=== PATIENT | male | born 1955 | race Caucasian/White ===

== ENCOUNTER 2017-02-16 16:41 | Emergency (ER) | payer MEDICARE, MEDICAID ==
--- NOTE | 2017-02-16 17:43 | EDM.PDOC ---
ED HPI GENERAL MEDICAL PROBLEM - General Chief Complaint: Genitourinary Problem Stated Complaint: REQUESTING A UA, [phone] Time Seen by Provider: 02/16/17 17:37 Source of Information: Reports: Patient History Limitations: Reports: No Limitations - History of Present Illness INITIAL COMMENTS - FREE TEXT/NARRATIVE: Pt states that he came here to get a urine drug screen. States that he was at a pain clinic in [facility] today and tested positive per the site for cocaine. States that he has never used cocaine before in his life and wanted to get a second opinion. No other complaints. Onset: Today Associated Symptoms: Reports: No Other Symptoms Generalized Pain Score (Numeric/FACES): 8 - Related Data Allergies Allergy/AdvReac Type Severity Reaction Status Date / Time aspirin Allergy Stomach Verified 03/16/15 16:21 Upset codeine Allergy Itching Verified 03/16/15 16:21 pregabalin [From Lyrica] Allergy Anaphylactic Verified 03/16/15 16:21 Shock Home Meds: Home Meds oxyCODONE [oxyCODONE] 40 mg PO BID 04/11/14 [History] Acetaminophen [Tylenol] 650 mg PO Q4H PRN 03/16/15 [History] Past Medical History Other HEENT History: Head injury that knocked out teeth Other Gastrointestinal History: lymph nodes on Pancreas. Patient is having scans every few months to watch for growth of lymph nodes Other Psychiatric History: decreased memory since head injury years ago - Past Surgical History Male Surgical History: Reports: Prostatectomy Other Musculoskeletal Surgeries/Procedures:: head and neck trauma Social & Family History - Family History Family Medical History: Noncontributory - Tobacco Use Smoking Status *Q: Current Every Day Smoker Years of Tobacco use: 40 Packs/Tins Daily: 0.5 Used Tobacco, but Quit: No Second Hand Smoke Exposure: No - Caffeine Use Caffeine Use: Reports: Coffee, Energy Drinks, Soda, Tea - Alcohol Use Days Per Week of Alcohol Use: 0 - Recreational Drug Use Recreational Drug Use: No - Living Situation & Occupation Living situation: Reports: with Family Occupation: Disabled ED ROS GENERAL - Review of Systems Review Of Systems: ROS reveals no pertinent complaints other than HPI. ED EXAM, GENERAL - Physical Exam Exam: See Below Exam Limited By: No Limitations General Appearance: Alert, WD/WN, No Apparent Distress Respiratory/Chest: No Respiratory Distress, Lungs Clear, Normal Breath Sounds, No Accessory Muscle Use, Chest Non-Tender Cardiovascular: Normal Peripheral Pulses, Regular Rate, Rhythm, No Edema, No Gallop, No JVD, No Murmur, No Rub Course - Orders/Labs/Meds Labs: Laboratory Tests 02/16/17 02/16/17 Range/Units 17:14 17:14 Urine Color Yellow (YELLOW) Urine Appearance Clear (CLEAR) Urine pH 7.0 (5.0-9.0) Ur Specific [place] 1.015 (1.005-1.030) Urine Protein Negative (NEGATIVE) Urine Glucose (UA) Negative (NEGATIVE) Urine Ketones Negative (NEGATIVE) Urine Occult Blood Trace-intact H (NEGATIVE) Urine Nitrite Negative (NEGATIVE) Urine Bilirubin Negative (NEGATIVE) Urine Urobilinogen 0.2 (0.2-1.0) mg/dL Ur Leukocyte Esterase Negative (NEGATIVE) Urine RBC 10-20 H /HPF Urine WBC 0-5 (0-5/HPF) /HPF Ur Epithelial Cells Not seen /HPF Urine Bacteria Rare (0-FEW/HPF) /HPF Urine Mucus Few H /LPF Urine Opiates Screen Positive H (NEGATIVE) Ur Oxycodone Screen Negative (NEGATIVE) Urine Methadone Screen Negative (NEGATIVE) Ur Barbiturates Screen Negative (NEGATIVE) U Tricyclic Antidepress Negative (NEGATIVE) Ur Phencyclidine Scrn Negative (NEGATIVE) Ur Amphetamine Screen Negative (NEGATIVE) U Methamphetamines Scrn Negative (NEGATIVE) Urine MDMA Screen Negative (NEGATIVE) U Benzodiazepines Scrn Negative (NEGATIVE) Urine Cocaine Screen Negative (NEGATIVE) U Marijuana (THC) Screen Negative (NEGATIVE) - Re-Assessments/Exams Free Text/Narrative Re-Assessment/Exam: 02/16/17 17:43 UDS did not reveal cocaine. Departure - Departure Time of Disposition: 17:44 Disposition: Home, Self-Care 01 Condition: Good Clinical Impression: Drug screening, pre-employment - Discharge Information Forms: ED Department Discharge Additional Instructions: There was no evidence of cocaine on your drug test today. Call medical records to obtain your official lab test.
== END 2017-02-16 17:50 | disposition home or self-care (01) ==
LOC: DL.ED 16:41
DX: Z02.1 Encounter for pre-employment examination (principal); Z13.89 Encounter for screening for other disorder; F17.210 Nicotine dependence, cigarettes, uncomplicated; Z88.8 Allergy status to other drugs, medicaments and biological substances; Z88.5 Allergy status to narcotic agent; Z88.6 Allergy status to analgesic agent; Z79.899 Other long term (current) drug therapy
CPT/HCPCS: 80305; 81001; 99281; 99282

== ENCOUNTER 2017-03-01 12:22 | Emergency (ER) | payer OTHER, MEDICARE, MEDICAID ==
[2017-03-01 12:27] VITALS: BP 116/91
--- NOTE | 2017-03-01 12:37 | EDM.PDOC ---
ED HPI GENERAL MEDICAL PROBLEM - General Chief Complaint: Neck Problem Stated Complaint: SHOULDER/NECK PAIN [phone] Time Seen by Provider: 03/01/17 12:35 Source of Information: Reports: Patient, Old Records, RN, RN Notes Reviewed History Limitations: Reports: No Limitations - History of Present Illness INITIAL COMMENTS - FREE TEXT/NARRATIVE: C/O chronic neck and shoulder pain for 7 years resulting from a beam falling onto his head. Pt went to his doctor for pain management 2 weeks ago and was told that his urine drug screen was positive for cocaine, and she will no longer prescribe oxycodone for him. Pt states when he was told of the positive drug screen he drove straight to the ER and had another drug screen which was negative for cocaine. Pt states that he has never used cocaine in his life. Now he has been out of pain medication for the past 4 days. He reports having withdrawal symptoms on the 2nd and 3rd days that he was out of the oxycodone, but that seems to be improving. He has an appointment to see a neurosurgeon in 2 weeks. He is currently looking for a new PCP doctor. He is at the ER today hoping to have his oxycodone refilled. 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 Patient is having scans every few months to watch for growth of lymph nodes Genitourinary History: Reports: BPH, Prostate Disorder Musculoskeletal History: Reports: Back Pain, Chronic, Neck Pain, Chronic, Osteoarthritis, Other (See Below) (DDD) Other Psychiatric History: decreased memory since head injury years ago Oncologic (Cancer) History: Reports: Prostate - Past Surgical History Male Surgical History: Reports: Prostatectomy Other Musculoskeletal Surgeries/Procedures:: head and neck trauma Social & Family History - Family History Family Medical History: Noncontributory - Tobacco Use Smoking Status *Q: Current Every Day Smoker Years of Tobacco use: 40 Packs/Tins Daily: 0.5 Used Tobacco, but Quit: No Second Hand Smoke Exposure: No - Caffeine Use Caffeine Use: Reports: Coffee, Energy Drinks, Soda, Tea - Alcohol Use Days Per Week of Alcohol Use: 0 - Recreational Drug Use Recreational Drug Use: No - Living Situation & Occupation Living situation: Reports: with Family Occupation: Disabled ED ROS GENERAL - Review of Systems Review Of Systems: ROS reveals no pertinent complaints other than HPI. ED EXAM, UPPER BACK/NECK PAIN - Physical Exam Exam: See Below Exam Limited By: No Limitations General Appearance: Alert, No Apparent Distress, Thin Ears Exam: Hearing Grossly Normal Nose Exam: Normal Inspection Throat/Mouth Exam: Normal Inspection Head Exam: Atraumatic, Normocephalic Neck Exam: Limited Range of Motion, Muscle Spasm, Paraspinous Muscle Tender. No : Spinous Processes Tender, Tender Midline Back Exam: Decreased Range of Motion, Muscle Spasm (upper thoracic and trapezius regions). 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 nml As Tested, No Motor/Sensory Deficits, Alert, Normal Mood/Affect, Oriented x 3 Psychiatric: Normal Affect, Normal Mood Skin Exam: Normal Color, Warm/Dry Course - Vital Signs Last Recorded V/S: Last Vital Signs Temp 36.6 C 03/01/17 12:26 Pulse 95 03/01/17 12:26 Resp 16 03/01/17 12:26 BP 116/91 H 03/01/17 12:26 Pulse Ox 99 03/01/17 12:26 - Orders/Labs/Meds Meds: Medications Discontinued Medications Generic Name Dose Route Start Last Admin Trade Name Freq PRN Reason Stop Dose Admin Oxycodone/Acetaminophen 2 tab 03/01/17 12:48 Percocet 325-5 Mg PO 03/01/17 12:49 ONETIME ONE - Re-Assessments/Exams Free Text/Narrative Re-Assessment/Exam: 03/01/17 13:07 I explained to the pt that controlled substances cannot be refilled in the ER. He has been on gabapentin in the past, tolerated it well, and had "some" relief with it. I will prescribe him gabapentin for the next 2 weeks until he either sees the neurosurgeon, or gets a new PCP. Departure - Departure Time of Disposition: 12:48 Disposition: Home, Self-Care 01 Condition: Good Clinical Impression: Chronic neck pain, Has run out of medications - Discharge Information Instructions: Chronic Pain, Degenerative Disk Disease Forms: ED Department Discharge Additional Instructions: Rx: Gabapentin 300mg *Do not drive while under the influence of this medication until you see how it affects you. Establish with a new provider for pain management at the first available appointment.
[2017-03-01] MEDS ORDERED: Acetaminophen/oxyCODONE 325-5 MG Tab PO ONE (12:48)
== END 2017-03-01 12:59 | disposition home or self-care (01) ==
LOC: DL.ED 12:22
DX: G89.29 Other chronic pain (principal); M54.2 Cervicalgia; Z88.5 Allergy status to narcotic agent; Z88.8 Allergy status to other drugs, medicaments and biological substances; F17.210 Nicotine dependence, cigarettes, uncomplicated
CPT/HCPCS: 99283; A9270

== ENCOUNTER 2017-04-02 16:57 | Emergency (ER) | payer MEDICARE, MEDICAID ==
[2017-04-02 18:46] VITALS: BP 113/72
--- NOTE | 2017-04-02 19:48 | EDM.PDOC ---
ED HPI GENERAL MEDICAL PROBLEM - General Chief Complaint: Back Pain or Injury Stated Complaint: BACK PAIN [phone] Time Seen by Provider: 04/02/17 19:42 Source of Information: Reports: Patient History Limitations: Reports: No Limitations - History of Present Illness INITIAL COMMENTS - FREE TEXT/NARRATIVE: c/o low back pain with radiation down back of right leg to heel, leg feels weaker. Hx remote head, neck and upper back injuries. 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) (none) Right Lower Back Pain Score (Numeric/FACES): 9 - Related Data Allergies Allergy/AdvReac Type Severity Reaction Status Date / Time aspirin Allergy Stomach Verified 03/01/17 12:33 Upset codeine Allergy Itching Verified 03/01/17 12:33 pregabalin [From Lyrica] Allergy Anaphylactic Verified 03/01/17 12:33 Shock Home Meds: Home Meds oxyCODONE [oxyCODONE] 20 mg PO BID PRN 04/11/14 [History] Past Medical History HEENT History: Reports: Other (See Below) Other HEENT History: Head injury that knocked out teeth Cardiovascular History: Reports: None Respiratory History: Reports: Other (See Below) (chronic tobacco dependence) Gastrointestinal History: Reports: Other (See Below) Other Gastrointestinal History: lymph nodes on Pancreas. Patient is having scans every few months to watch for growth of lymph nodes Genitourinary History: Reports: BPH, Prostate Disorder Musculoskeletal History: Reports: Back Pain, Chronic, Neck Pain, Chronic, Osteoarthritis Other Psychiatric History: decreased memory since head injury years ago Oncologic (Cancer) History: Reports: Prostate - Infectious Disease History Infectious Disease History: Reports: None - Past Surgical History Cardiovascular Surgical History: Reports: None Male Surgical History: Reports: Prostatectomy Other Musculoskeletal Surgeries/Procedures:: head and neck trauma Social & Family History - Family History Family Medical History: Noncontributory - Tobacco Use Smoking Status *Q: Current Every Day Smoker Years of Tobacco use: 40 Packs/Tins Daily: 0.5 Used Tobacco, but Quit: No Second Hand Smoke Exposure: No - Caffeine Use Caffeine Use: Reports: Coffee, Energy Drinks, Soda, Tea - Alcohol Use Days Per Week of Alcohol Use: 0 - Recreational Drug Use Recreational Drug Use: No - Living Situation & Occupation Living situation: Reports: with Family Occupation: Disabled ED ROS GENERAL - Review of Systems Review Of Systems: ROS reveals no pertinent complaints other than HPI. ED EXAM,LOWER BACK PAIN/INJURY - Physical Exam Exam: See Below Exam Limited By: No Limitations General Appearance: Alert, Mild Distress, Thin Eye Exam: Bilateral Eye: EOMI Ears: Normal External Exam Nose: Normal Inspection Neck: Normal Inspection, Full Range of Motion Respiratory/Chest: No Respiratory Distress, Lungs Clear Cardiovascular: Regular Rate, Rhythm Extremities: Leg Pain (right posterior). No: Pedal Edema Neurological: Alert, Normal Mood/Affect, Oriented x 3, Abnormal Gait (antalgic) , Straight Leg Raise (R), Difficulty Walking. No: Saddle Anesthesia DTR - Lower Extremities: 2+: Knee (R), 3+: Knee (L) Psychiatric: Normal Affect, Normal Mood Skin Exam: Warm, Dry, Intact, Normal Color, No Rash Course - Vital Signs Last Recorded V/S: Last Vital Signs Temp 97.2 F 04/02/17 18:10 Pulse 85 04/02/17 18:10 Resp 16 04/02/17 18:10 BP 113/72 04/02/17 18:10 Pulse Ox 100 04/02/17 18:10 - Re-Assessments/Exams Free Text/Narrative Re-Assessment/Exam: 2114: Awaiting radiologists report of CT, Patient sleeping soundly in wheel chair, no distress. 04/02/17 22:27 While awaiting test rest for CT, patient reported he was going to medical floor to see mother. Was seen leaving front entrance and did not return. Departure - Departure Time of Disposition: 22:12 Disposition: Eloped 07 Condition: Fair Clinical Impression: Chronic back pain Qualifiers: Back pain location: low back pain Back pain laterality: unspecified Sciatica presence: without sciatica Qualified Code(s): M54.5 - Low back pain Sciatica Qualifiers: Laterality: right Qualified Code(s): M54.31 - Sciatica, right side - Discharge Information Instructions: Back Pain, Adult, [id number] Referrals: PCP,Unobtain [Primary Care Provider] - Forms: ED Department Discharge Additional Instructions: prednisone 20mg x3 days, 10mg x 3 days follow up with primary care provider
== END 2017-04-02 22:15 | disposition left against medical advice (07) ==
LOC: DL.ED 16:57
DX: M54.41 Lumbago with sciatica, right side (principal); M19.90 Unspecified osteoarthritis, unspecified site; F17.210 Nicotine dependence, cigarettes, uncomplicated; Z88.8 Allergy status to other drugs, medicaments and biological substances; Z88.5 Allergy status to narcotic agent; Z90.79 Acquired absence of other genital organ(s)
CPT/HCPCS: 72131; 99283

== ENCOUNTER 2017-04-04 15:29 | Emergency (ER) | payer MEDICARE, MEDICAID | END 2017-04-04 16:55 | disposition left against medical advice (07) | LOC: DL.ED 15:29 | DX: Z53.21 Procedure and treatment not carried out due to patient leaving prior to being seen by health care provider (principal) ==

== ENCOUNTER 2017-05-30 17:26 | Emergency (ER) | payer MEDICARE, MEDICAID ==
[2017-05-30 17:38] VITALS: BP 139/84
--- NOTE | 2017-05-30 18:34 | EDM.PDOC ---
<Reba Alascegerardo Muñiz - Last Filed: 05/31/17 03:18> ED HPI GENERAL MEDICAL PROBLEM - General Chief Complaint: Back Pain or Injury Stated Complaint: BACK, [phone] Time Seen by Provider: 05/30/17 18:00 - Related Data Allergies Allergy/AdvReac Type Severity Reaction Status Date / Time aspirin Allergy Stomach Verified 05/30/17 17:41 Upset codeine Allergy Itching Verified 05/30/17 17:41 pregabalin [From Lyrica] Allergy Anaphylactic Verified 05/30/17 17:41 Shock Home Meds: Home Meds oxyCODONE [oxyCODONE] 20 mg PO BID PRN 04/11/14 [History] ED ROS GENERAL - Review of Systems Review Of Systems: ROS reveals no pertinent complaints other than HPI. Course - Vital Signs Last Recorded V/S: Last Vital Signs Temp 97.7 F 05/30/17 17:37 Pulse 95 05/30/17 17:37 Resp 20 05/30/17 17:37 BP 139/84 05/30/17 17:37 Pulse Ox 100 05/30/17 17:37 - Radiology Interpretation Free Text/Narrative:: Lumbar spine Chronic degenerative disc disease, multi level unchanged from previous CT - Re-Assessments/Exams Free Text/Narrative Re-Assessment/Exam: 05/30/17 22:24 Patient verbalizing displeasure at having to wait for xray reports, stated he was going to finish paper work up front. Observed leaving facility Departure - Departure Time of Disposition: 20:10 Disposition: Eloped 07 Condition: Undetermined Clinical Impression: Back pain Qualifiers: Back pain location: low back pain Chronicity: chronic Back pain laterality: unspecified Sciatica presence: unspecified whether sciatica present Qualified Code(s): M54.5 - Low back pain - Discharge Information Referrals: PCP,None [Primary Care Provider] - Forms: ED Department Discharge <Ada Lofton - Last Filed: 05/31/17 07:47> ED HPI GENERAL MEDICAL PROBLEM - General Source of Information: Reports: Patient, RN, RN Notes Reviewed History Limitations: Reports: No Limitations - History of Present Illness INITIAL COMMENTS - FREE TEXT/NARRATIVE: Patient ambulates into the ER with c/o low back pain. He states he fell down some steps in March and was seen in the ER. He had a lumbar spine CT done, but patient states he did not have time to sit around and wait for the results of the CT. He states he has not re-injured the area, but that he feels there is something wrong, as he cannot cross his legs. He states he cannot go on with pain like this. Patient denies any other problems at this time. Onset: Gradual Duration: Chronic Location: Reports: Back Quality: Reports: Sharp, Stabbing Severity: Severe Improves with: Reports: None Worsens with: Reports: None Associated Symptoms: Reports: No Other Symptoms Lower Back Pain Score (Numeric/FACES): 9 Past Medical History HEENT History: Reports: Other (See Below) Other HEENT History: Head injury that knocked out teeth Cardiovascular History: Reports: None Respiratory History: Reports: Other (See Below) Gastrointestinal History: Reports: Other (See Below) Other Gastrointestinal History: lymph nodes on Pancreas. Patient is having scans every few months to watch for growth of lymph nodes Genitourinary History: Reports: BPH, Prostate Disorder Musculoskeletal History: Reports: Back Pain, Chronic, Neck Pain, Chronic, Osteoarthritis Other Psychiatric History: decreased memory since head injury years ago Oncologic (Cancer) History: Reports: Prostate - Infectious Disease History Infectious Disease History: Reports: None - Past Surgical History Cardiovascular Surgical History: Reports: None Male Surgical History: Reports: Prostatectomy Other Musculoskeletal Surgeries/Procedures:: head and neck trauma Social & Family History - Family History Family Medical History: Noncontributory - Tobacco Use Smoking Status *Q: Current Every Day Smoker Years of Tobacco use: 40 Packs/Tins Daily: 0.8 Used Tobacco, but Quit: No Second Hand Smoke Exposure: No - Caffeine Use Caffeine Use: Reports: Coffee, Soda - Alcohol Use Days Per Week of Alcohol Use: 0 - Recreational Drug Use Recreational Drug Use: No - Living Situation & Occupation Living situation: Reports: with Family Occupation: Disabled ED ROS GENERAL - Review of Systems Review Of Systems: ROS reveals no pertinent complaints other than HPI. ED EXAM,LOWER BACK PAIN/INJURY - Physical Exam Exam: See Below Exam Limited By: No Limitations General Appearance: Alert, WD/WN, No Apparent Distress Eye Exam: Bilateral Eye: Normal Inspection, PERRL Ears: Normal External Exam, Normal Canal, Hearing Grossly Normal, Normal TMs Nose: Normal Inspection, Normal Mucosa, No Blood Throat/Mouth: Normal Inspection, Normal Lips, Normal Teeth, Normal Gums, Normal Oropharynx, Normal Voice, No Airway Compromise Head: Atraumatic, Normocephalic Neck: Normal Inspection, Supple, Non-Tender, Full Range of Motion Respiratory/Chest: No Respiratory Distress, Lungs Clear, No Accessory Muscle Use , Chest Non-Tender, Decreased Breath Sounds Cardiovascular: Normal Peripheral Pulses, Regular Rate, Rhythm, No Edema, No Gallop, No JVD, No Murmur, No Rub GI/Abdominal: Normal Bowel Sounds, Soft, Non-Tender, No Organomegaly, No Distention, No Abnormal Bruit, No Mass (Male) Exam: Deferred Rectal (Males) Exam: Deferred Back Exam: Decreased Range of Motion, Paraspinal Tenderness, Vertebral Tenderness Neurological: Alert, Normal Mood/Affect, Normal Dorsiflexion, Normal Plantar Flexion, Normal Gait, No Motor/Sensory Deficits, Oriented x 3 Psychiatric: Normal Affect, Normal Mood Skin Exam: Warm, Dry, Intact, Normal Color, No Rash Lymphatic: No Adenopathy
== END 2017-05-30 20:09 | disposition left against medical advice (07) ==
LOC: DL.ED 17:26
DX: M54.5 Low back pain (principal); F17.210 Nicotine dependence, cigarettes, uncomplicated; Z85.46 Personal history of malignant neoplasm of prostate; Z90.79 Acquired absence of other genital organ(s); Z88.5 Allergy status to narcotic agent; Z88.6 Allergy status to analgesic agent; Z88.8 Allergy status to other drugs, medicaments and biological substances
CPT/HCPCS: 72100; 99283

== ENCOUNTER 2017-07-11 12:27 | Emergency (ER) | payer MEDICARE, MEDICAID ==
[2017-07-11 13:06] VITALS: BP 116/78
--- NOTE | 2017-07-11 13:27 | EDM.PDOC ---
ED HPI GENERAL MEDICAL PROBLEM - General Chief Complaint: Syncope Stated Complaint: CHEST PAIN Time Seen by Provider: 07/11/17 13:15 Source of Information: Reports: Patient History Limitations: Reports: No Limitations - History of Present Illness INITIAL COMMENTS - FREE TEXT/NARRATIVE: This 62 yo male patient reports to the ED with a "4-5 day" history of dizzy spells, pains in his chest to his back. The patient reports he has not been eating or drinking normally over the past couple of weeks. The patient reports his symptoms got worse today which brought him into the ED. The patient reports he has not been in to see a primary care provider because "the clinic will not take any new patients". Onset Date: 07/07/17 Duration: Constant Location: Reports: Generalized Quality: Reports: Ache, Sharp Severity: Moderate Improves with: Reports: None Associated Symptoms: Reports: Chest Pain, Shortness of Breath - Related Data Allergies Allergy/AdvReac Type Severity Reaction Status Date / Time aspirin Allergy Stomach Verified 05/30/17 17:41 Upset codeine Allergy Itching Verified 05/30/17 17:41 pregabalin [From Lyrica] Allergy Anaphylactic Verified 05/30/17 17:41 Shock Past Medical History HEENT History: Reports: Other (See Below) Other HEENT History: Head injury that knocked out teeth Cardiovascular History: Reports: None Respiratory History: Reports: Other (See Below) Gastrointestinal History: Reports: Other (See Below) Other Gastrointestinal History: lymph nodes on Pancreas. Patient is having scans every few months to watch for growth of lymph nodes Genitourinary History: Reports: BPH, Prostate Disorder Musculoskeletal History: Reports: Back Pain, Chronic, Neck Pain, Chronic, Osteoarthritis Other Psychiatric History: decreased memory since head injury years ago Oncologic (Cancer) History: Reports: Prostate - Infectious Disease History Infectious Disease History: Reports: None - Past Surgical History Cardiovascular Surgical History: Reports: None Male Surgical History: Reports: Prostatectomy Other Musculoskeletal Surgeries/Procedures:: head and neck trauma Social & Family History - Family History Family Medical History: Noncontributory - Tobacco Use Smoking Status *Q: Current Every Day Smoker Years of Tobacco use: 40 Packs/Tins Daily: 0.5 Used Tobacco, but Quit: No Second Hand Smoke Exposure: No - Caffeine Use Caffeine Use: Reports: Coffee, Soda - Alcohol Use Days Per Week of Alcohol Use: 0 - Recreational Drug Use Recreational Drug Use: No - Living Situation & Occupation Living situation: Reports: with Family Occupation: Disabled ED ROS GENERAL - Review of Systems Review Of Systems: ROS reveals no pertinent complaints other than HPI. ED EXAM, GENERAL - Physical Exam Exam: See Below Exam Limited By: No Limitations General Appearance: Alert, WD/WN, Mild Distress, Thin Eye Exam: Bilateral Eye: EOMI, Normal Inspection, PERRL Ears: Normal External Exam, Normal Canal, Hearing Grossly Normal, Normal TMs Nose: Normal Inspection, Normal Mucosa, No Blood Throat/Mouth: Normal Inspection, Normal Lips, Normal Teeth, Normal Gums, Normal Oropharynx, Normal Voice, No Airway Compromise Head: Atraumatic, Normocephalic Neck: Normal Inspection, Supple, Non-Tender, Full Range of Motion Respiratory/Chest: No Respiratory Distress, Lungs Clear, Normal Breath Sounds, No Accessory Muscle Use, Chest Non-Tender Cardiovascular: Normal Peripheral Pulses, Regular Rate, Rhythm, No Edema, No Gallop, No JVD, No Murmur, No Rub GI/Abdominal: Normal Bowel Sounds, Soft, Non-Tender, No Organomegaly, No Distention, No Abnormal Bruit, No Mass (Male) Exam: Deferred Rectal (Males) Exam: Deferred Back Exam: Normal Inspection, Full Range of Motion, NT Extremities: Normal Inspection, Normal Range of Motion, Non-Tender, Normal Capillary Refill, No Pedal Edema Neurological: Alert, Oriented, CN II-XII Intact, Normal Cognition, Normal Gait, Normal Reflexes, No Motor/Sensory Deficits Psychiatric: Normal Affect, Normal Mood Skin Exam: Warm, Dry, Intact, Normal Color, No Rash Lymphatic: No Adenopathy Course - Vital Signs Last Recorded V/S: Last Vital Signs Temp 36.5 C 07/11/17 12:48 Pulse 86 07/11/17 13:05 Resp 16 07/11/17 13:05 BP 116/78 07/11/17 13:05 Pulse Ox 99 07/11/17 13:05 - Orders/Labs/Meds Orders: Active Orders 24 hr Category Date Time Status EKG 12 Lead [EKG Documentation Completion] [RC] ROUTINE Care 07/11/17 13:02 Active DRUG SCREEN URINE BIORAD [URCHEM] Stat Lab 07/11/17 13:04 Uncollected UA W/MICROSCOPIC [URIN] Stat Lab 07/11/17 13:03 Uncollected Sodium Chloride 0.9% [Normal Saline] 1,000 ml Med 07/11/17 13:28 Active IV .BOLUS Medication Orders Sodium Chloride (Normal Saline) 1,000 mls @ 500 mls/hr IV .BOLUS ONE Stop: 07/11/17 15:27 Labs: Laboratory Tests 07/11/17 07/11/17 07/11/17 Range/Units 13:20 13:20 13:20 WBC 7.8 (5.0-10.0) 10^3/uL RBC 5.18 (4.6-6.2) 10^6/uL Hgb 16.0 (14.0-18.0) g/dL Hct 45.1 (40.0-54.0) % MCV 87.1 D (80-100) fL MCH 30.9 (27.0-34.0) pg MCHC 35.5 H (33.0-35.0) g/dL Plt Count 225 D (150-450) 10^3/uL Neut % (Auto) 63.0 (42.2-75.2) % Lymph % (Auto) 24.6 (20.5-50.1) % Hall % (Auto) 11.0 H (2-8) % Eos % (Auto) 0.9 L (1.0-3.0) % Baso % (Auto) 0.5 (0.0-1.0) % Add Manual Diff Yes Neutrophils % (Manual) 67 (42-75) % Lymphocytes % (Manual) 29 (20-50) % Monocytes % (Manual) 4 (2-8) % D-Dimer, Quantitative < 100 (0-400) ng/mL Sodium 136 (135-145) mmol/L Potassium 3.7 (3.6-5.0) mmol/L Chloride 103 (101-111) mmol/L Carbon Dioxide 23.0 (21.0-31.0) mmol/L Anion Gap 13.7 BUN 14 (7-18) mg/dL Creatinine 0.8 (0.6-1.3) mg/dL Est Cr Clr Drug Dosing 89.06 mL/min Estimated GFR (MDRD) > 60 BUN/Creatinine Ratio 17.50 Glucose 100 (74-105) mg/dL Calcium 9.4 (8.4-10.2) mg/dl Total Bilirubin 1.0 (0.2-1.0) mg/dL AST 31 (10-42) IU/L ALT 38 (10-60) IU/L Alkaline Phosphatase 57 (42-121) IU/L Troponin I < 0.02 (0.00-0.02) ng/ml Total Protein 8.0 (6.7-8.2) g/dl Albumin 4.4 (3.2-5.5) g/dl Globulin 3.6 Albumin/Globulin Ratio 1.22 Meds: Medications Generic Name Dose Route Start Last Admin Trade Name Freq PRN Reason Stop Dose Admin Sodium Chloride 1,000 mls @ 500 mls/hr 07/11/17 13:28 Normal Saline IV 07/11/17 15:27 .BOLUS ONE Departure - Departure Time of Disposition: 14:05 Disposition: Against Medical Advice 07 Condition: Fair Clinical Impression: Syncope Qualifiers: Syncope type: unspecified Qualified Code(s): R55 - Syncope and collapse Forms: ED Department Discharge Care Plan Goals: The patient was advised of the examination, lab and x-ray results. The patient refused any additional testing or treatments. The patient left against medical advice. - My Orders Last 24 Hours: My Active Orders 07/11/17 13:02 EKG 12 Lead [EKG Documentation Completion] [RC] ROUTINE 07/11/17 13:03 UA W/MICROSCOPIC [URIN] Stat 07/11/17 13:04 DRUG SCREEN URINE BIORAD [URCHEM] Stat 07/11/17 13:28 Sodium Chloride 0.9% [Normal Saline] 1,000 ml IV .BOLUS - Assessment/Plan Last 24 Hours: My Active Orders 07/11/17 13:02 EKG 12 Lead [EKG Documentation Completion] [RC] ROUTINE 07/11/17 13:03 UA W/MICROSCOPIC [URIN] Stat 07/11/17 13:04 DRUG SCREEN URINE BIORAD [URCHEM] Stat 07/11/17 13:28 Sodium Chloride 0.9% [Normal Saline] 1,000 ml IV .BOLUS
[2017-07-11] MEDS ORDERED: Sodium Chloride 0.9% 1,000 ML IV ONE (13:28)
--- NOTE | 2017-07-11 13:36 | CR ---
Clinical history: 62-year-old male chest pain. Interpretation: Dorsolumbar scoliosis. Atheromatous calcifications arch of the aorta. Generalized air trapping but no lung mass, hilar lymphadenopathy or focal lobar pneumonia. No atelect asis/collapse. Small heart without cephalization of vascular flow, alveolar edema or dependent pleural effusion. No pneumothorax. CONCLUSION: No acute new cardiopulmonary abnormality since 30 June 2015 exam.
[2017-07-11 13:48] LABS: CHLORIDE,CL 103 mmol/L (101-111); SODIUM,NA 136 mmol/L (135-145)
--- NOTE | 2017-07-13 09:56 | EKG ---
07/11/2017- JAYDEN PAYNE - EKG per my reading shows sinus rhythm at a rate of 81. [facility] /[id number]
== END 2017-07-11 14:15 | disposition left against medical advice (07) ==
LOC: DL.ED 12:27
DX: R55 Syncope and collapse (principal); F17.210 Nicotine dependence, cigarettes, uncomplicated; Z88.5 Allergy status to narcotic agent; Z88.6 Allergy status to analgesic agent; Z88.8 Allergy status to other drugs, medicaments and biological substances
CPT/HCPCS: 36415; 71020; 80053; 84484; 85025; 85379; 93005; 93010; 99283; 99284

== ENCOUNTER 2017-07-14 08:43 | Emergency (ER) | payer MEDICARE, MEDICAID ==
[2017-07-14 08:54] VITALS: BP 125/84
[2017-07-14] MEDS ORDERED: Sodium Chloride 0.9% 1,000 ML IV ONE (09:04)
--- NOTE | 2017-07-14 09:10 | EDM.PDOCBH ---
ED HPI GENERAL MEDICAL PROBLEM - General Chief Complaint: Drug or Alcohol Abuse Stated Complaint: IN BY AMBULANCE Time Seen by Provider: 07/14/17 08:55 Source of Information: Reports: Patient History Limitations: Reports: No Limitations - History of Present Illness INITIAL COMMENTS - FREE TEXT/NARRATIVE: This 62 yo male patient was brought to the ED by [facility] due to an intentional overdose on oxycodone, nausea, vomiting and a headache. The patient reports he has been under a lot of stress over the past couple of weeks due to his mother having a heart attack, his son getting into drug use/abuse and law enforcement entering his apartment looking for marijuana. This patient has been seen in the ED on Onset: Gradual Duration: Day(s):, Constant Location: Reports: Generalized Quality: Reports: Other Severity: Moderate Improves with: Reports: None Worsens with: Reports: None Context: Reports: Other Associated Symptoms: Reports: No Other Symptoms Head Pain Score (Numeric/FACES): 10 - Related Data Allergies Allergy/AdvReac Type Severity Reaction Status Date / Time aspirin Allergy Stomach Verified 07/14/17 08:54 Upset codeine Allergy Itching Verified 07/14/17 08:54 pregabalin [From Lyrica] Allergy Anaphylactic Verified 07/14/17 08:54 Shock Past Medical History HEENT History: Reports: Other (See Below) Other HEENT History: Head injury that knocked out teeth Cardiovascular History: Reports: None Respiratory History: Reports: Other (See Below) Gastrointestinal History: Reports: Other (See Below) Other Gastrointestinal History: lymph nodes on Pancreas. Patient is having scans every few months to watch for growth of lymph nodes Genitourinary History: Reports: BPH, Prostate Disorder Musculoskeletal History: Reports: Back Pain, Chronic, Neck Pain, Chronic, Osteoarthritis Other Psychiatric History: decreased memory since head injury years ago Oncologic (Cancer) History: Reports: Prostate - Infectious Disease History Infectious Disease History: Reports: None - Past Surgical History Cardiovascular Surgical History: Reports: None Male Surgical History: Reports: Prostatectomy Other Musculoskeletal Surgeries/Procedures:: head and neck trauma Social & Family History - Family History Family Medical History: Noncontributory - Tobacco Use Smoking Status *Q: Current Every Day Smoker Years of Tobacco use: 40 Packs/Tins Daily: 0.5 Used Tobacco, but Quit: No Second Hand Smoke Exposure: No - Caffeine Use Caffeine Use: Reports: Coffee, Soda - Alcohol Use Days Per Week of Alcohol Use: 0 - Recreational Drug Use Recreational Drug Use: No - Living Situation & Occupation Living situation: Reports: with Family Occupation: Disabled ED ROS GENERAL - Review of Systems Review Of Systems: ROS reveals no pertinent complaints other than HPI. ED EXAM, BEHAVIORAL HEALTH - Physical Exam Exam: See Below Exam Limited By: No Limitations General Appearance: Alert, WD/WN, Moderate Distress, Thin Eye Exam: Bilateral Eye: EOMI, Normal Inspection, PERRL Ears: Normal External Exam, Normal Canal, Hearing Grossly Normal, Normal TMs Nose: Normal Inspection, Normal Mucosa, No Blood Throat/Mouth: Normal Inspection, Normal Lips, Normal Teeth, Normal Gums, Normal Oropharynx, Normal Voice, No Airway Compromise Head: Atraumatic, Normocephalic Neck: Normal Inspection, Supple, Non-Tender, Full Range of Motion Respiratory/Chest: No Respiratory Distress, Lungs Clear, Normal Breath Sounds, No Accessory Muscle Use, Chest Non-Tender Cardiovascular: Normal Peripheral Pulses, Regular Rate, Rhythm, No Edema, No Gallop, No JVD, No Murmur, No Rub GI/Abdominal: Normal Bowel Sounds, Soft, Non-Tender, No Organomegaly, No Distention, No Abnormal Bruit, No Mass (Male) Exam: Deferred Rectal (Males) Exam: Deferred Back Exam: Normal Inspection, Full Range of Motion, NT Extremities: Normal Inspection, Normal Range of Motion, Non-Tender, Normal Capillary Refill, No Pedal Edema Neurological: Alert, Normal Mood/Affect, CN II-XII Intact, Normal Cognition, Normal Gait, Normal Reflexes, No Motor/Sensory Deficits, Oriented x 3 Psychiatric: Alert, Normal Affect, Normal Cognition, Normal Mood, Oriented Skin Exam: Warm, Dry, Intact, Normal color, No rash COURSE, BEHAVIORAL HEALTH COMP - Course Vital Signs: Last Vital Signs Temp 36.9 C 07/14/17 08:48 Pulse 74 07/14/17 08:48 Resp 16 07/14/17 08:48 BP 125/84 07/14/17 08:48 Pulse Ox 99 07/14/17 08:48 Orders, Labs, Meds: Laboratory Tests 07/14/17 07/14/17 07/14/17 Range/Units 09:20 09:20 09:20 WBC 8.4 (5.0-10.0) 10^3/uL RBC 5.62 (4.6-6.2) 10^6/uL Hgb 17.3 (14.0-18.0) g/dL Hct 49.4 (40.0-54.0) % MCV 87.9 (80-100) fL MCH 30.8 (27.0-34.0) pg MCHC 35.0 (33.0-35.0) g/dL Plt Count 224 (150-450) 10^3/uL Neut % (Auto) 59.5 (42.2-75.2) % Lymph % (Auto) 26.9 (20.5-50.1) % [place] % (Auto) 10.6 H (2-8) % Eos % (Auto) 2.5 (1.0-3.0) % Baso % (Auto) 0.5 (0.0-1.0) % Sodium 139 (135-145) mmol/L Potassium 3.7 (3.6-5.0) mmol/L Chloride 101 (101-111) mmol/L Carbon Dioxide 27.0 (21.0-31.0) mmol/L Anion Gap 14.7 BUN 14 (7-18) mg/dL Creatinine 0.9 (0.6-1.3) mg/dL Est Cr Clr Drug Dosing 79.17 mL/min Estimated GFR (MDRD) > 60 BUN/Creatinine Ratio 15.55 Glucose 104 (74-105) mg/dL Calcium 10.1 (8.4-10.2) mg/dl Magnesium 2.3 (1.8-2.5) mg/dL Total Bilirubin 1.0 (0.2-1.0) mg/dL AST 38 (10-42) IU/L ALT 46 (10-60) IU/L Alkaline Phosphatase 69 (42-121) IU/L Ammonia 14 (11-35) umol/L Total Protein 9.0 H (6.7-8.2) g/dl Albumin 5.0 (3.2-5.5) g/dl Globulin 4.0 Albumin/Globulin Ratio 1.25 Amylase 35 (28-100) U/L Lipase 28 (22-51) U/L Urine Color (YELLOW) Urine Appearance (CLEAR) Urine pH (5.0-9.0) Ur Specific [place] (1.005-1.030) Urine Protein (NEGATIVE) Urine Glucose (UA) (NEGATIVE) Urine Ketones (NEGATIVE) Urine Occult Blood (NEGATIVE) Urine Nitrite (NEGATIVE) Urine Bilirubin (NEGATIVE) Urine Urobilinogen (0.2-1.0) mg/dL Ur Leukocyte Esterase (NEGATIVE) Urine RBC /HPF Urine WBC (0-5/HPF) /HPF Ur Epithelial Cells /HPF Amorphous Sediment (0/HPF) /HPF Urine Bacteria (0-FEW/HPF) /HPF Urine Mucus /LPF Urine Opiates Screen (NEGATIVE) Ur Oxycodone Screen (NEGATIVE) Urine Methadone Screen (NEGATIVE) Acetaminophen < 10 Ur Barbiturates Screen (NEGATIVE) U Tricyclic Antidepress (NEGATIVE) Ur Phencyclidine Scrn (NEGATIVE) Ur Amphetamine Screen (NEGATIVE) U Methamphetamines Scrn (NEGATIVE) Urine MDMA Screen (NEGATIVE) U Benzodiazepines Scrn (NEGATIVE) Urine Cocaine Screen (NEGATIVE) U Marijuana (THC) Screen (NEGATIVE) Ethyl Alcohol 5 mg/dL 07/14/17 07/14/17 Range/Units 10:30 10:30 WBC (5.0-10.0) 10^3/uL RBC (4.6-6.2) 10^6/uL Hgb (14.0-18.0) g/dL Hct (40.0-54.0) % MCV (80-100) fL MCH (27.0-34.0) pg MCHC (33.0-35.0) g/dL Plt Count (150-450) 10^3/uL Neut % (Auto) (42.2-75.2) % Lymph % (Auto) (20.5-50.1) % [place] % (Auto) (2-8) % Eos % (Auto) (1.0-3.0) % Baso % (Auto) (0.0-1.0) % Sodium (135-145) mmol/L Potassium (3.6-5.0) mmol/L Chloride (101-111) mmol/L Carbon Dioxide (21.0-31.0) mmol/L Anion Gap BUN (7-18) mg/dL Creatinine (0.6-1.3) mg/dL Est Cr Clr Drug Dosing mL/min Estimated GFR (MDRD) BUN/Creatinine Ratio Glucose (74-105) mg/dL Calcium (8.4-10.2) mg/dl Magnesium (1.8-2.5) mg/dL Total Bilirubin (0.2-1.0) mg/dL AST (10-42) IU/L ALT (10-60) IU/L Alkaline Phosphatase (42-121) IU/L Ammonia (11-35) umol/L Total Protein (6.7-8.2) g/dl Albumin (3.2-5.5) g/dl Globulin Albumin/Globulin Ratio Amylase (28-100) U/L Lipase (22-51) U/L Urine Color Yellow (YELLOW) Urine Appearance Slightly cloudy (CLEAR) Urine pH 7.0 (5.0-9.0) Ur Specific [place] 1.020 (1.005-1.030) Urine Protein Negative (NEGATIVE) Urine Glucose (UA) Negative (NEGATIVE) Urine Ketones Negative (NEGATIVE) Urine Occult Blood Negative (NEGATIVE) Urine Nitrite Negative (NEGATIVE) Urine Bilirubin Negative (NEGATIVE) Urine Urobilinogen 0.2 (0.2-1.0) mg/dL Ur Leukocyte Esterase Negative (NEGATIVE) Urine RBC 0-5 /HPF Urine WBC 0-5 (0-5/HPF) /HPF Ur Epithelial Cells Rare /HPF Amorphous Sediment Few (0/HPF) /HPF Urine Bacteria Rare (0-FEW/HPF) /HPF Urine Mucus Few H /LPF Urine Opiates Screen Negative (NEGATIVE) Ur Oxycodone Screen Positive H (NEGATIVE) Urine Methadone Screen Negative (NEGATIVE) Acetaminophen Ur Barbiturates Screen Negative (NEGATIVE) U Tricyclic Antidepress Negative (NEGATIVE) Ur Phencyclidine Scrn Negative (NEGATIVE) Ur Amphetamine Screen Positive H (NEGATIVE) U Methamphetamines Scrn Positive H (NEGATIVE) Urine MDMA Screen Negative (NEGATIVE) U Benzodiazepines Scrn Negative (NEGATIVE) Urine Cocaine Screen Negative (NEGATIVE) U Marijuana (THC) Screen Negative (NEGATIVE) Ethyl Alcohol mg/dL Medications Discontinued Medications Generic Name Dose Route Start Last Admin Trade Name Freq PRN Reason Stop Dose Admin Sodium Chloride 1,000 mls @ 999 mls/hr 07/14/17 09:04 07/14/17 09:23 Normal Saline IV 07/14/17 10:04 999 mls/hr .BOLUS ONE Administration Departure - Departure Time of Disposition: 11:05 Disposition: Home, Self-Care 01 Condition: Fair Clinical Impression: Methamphetamine use, Anxiety - Discharge Information Instructions: Stimulant Use Disorder-Methamphetamines, Panic Attacks Forms: ED Department Discharge Care Plan Goals: Discussed the examination and lab results with the patient during the visit. The patient was given a liter of IV fluid while in the ED. The patient was encouraged to follow-up with the [facility]. If the patient has any additional symptoms or concerns, the patient should follow-up with his primary care facility or return to the emergency department.
[2017-07-14 09:50] LABS: CHLORIDE,CL 101 mmol/L (101-111); SODIUM,NA 139 mmol/L (135-145)
[2017-07-14 09:51] LABS: ACETAMINOPHEN < 10
== END 2017-07-14 11:16 | disposition home or self-care (01) ==
LOC: DL.ED 08:43
DX: F15.90 Other stimulant use, unspecified, uncomplicated (principal); F41.9 Anxiety disorder, unspecified; F17.210 Nicotine dependence, cigarettes, uncomplicated; Z88.5 Allergy status to narcotic agent; Z88.6 Allergy status to analgesic agent; Z88.8 Allergy status to other drugs, medicaments and biological substances
CPT/HCPCS: 36415; 80053; 80305; 81001; 82140; 82150; 83690; 83735; 85025; 99283; 99285; G0480; J7030

== ENCOUNTER 2017-10-16 18:37 | Emergency (ER) | payer MEDICARE, MEDICAID ==
[2017-10-16] MEDS ORDERED: Sodium Chloride 0.9% 10 ML Syringe FLUSH PRN (18:47)
[2017-10-16 19:17] LABS: CHLORIDE,CL 103 mmol/L (101-111); SODIUM,NA 136 mmol/L (135-145)
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
== END 2017-10-16 20:58 | disposition home or self-care (01) ==
LOC: DL.ED 18:37
DX: S12.100K Unspecified displaced fracture of second cervical vertebra, subsequent encounter for fracture with nonunion (principal); S12.112K Nondisplaced Type II dens fracture, subsequent encounter for fracture with nonunion; F17.210 Nicotine dependence, cigarettes, uncomplicated; Z88.5 Allergy status to narcotic agent; Z88.6 Allergy status to analgesic agent; Z88.8 Allergy status to other drugs, medicaments and biological substances; V89.2XXD Person injured in unspecified motor-vehicle accident, traffic, subsequent encounter; Y92.410 Unspecified street and highway as the place of occurrence of the external cause
CPT/HCPCS: 36415; 70450; 71045; 72125; 72170; 80053; 80305; 81001; 83605; 85025; 99284; G0480

== ENCOUNTER 2017-12-14 13:05 | Emergency (ER) | payer MEDICARE, MEDICAID | END 2017-12-14 14:03 | disposition left against medical advice (07) | LOC: DL.ED 13:05 | DX: Z53.21 Procedure and treatment not carried out due to patient leaving prior to being seen by health care provider (principal) ==

== ENCOUNTER 2017-12-14 16:36 | Emergency (ER) | payer MEDICARE, MEDICAID ==
[2017-12-14] MEDS ORDERED: Albuterol 6.7 GM Inhaler INH ONE ×2 (16:37→20:59)
--- NOTE | 2017-12-14 18:59 | EDM.PDOC ---
<Van Danielle M - Last Filed: 12/14/17 18:50> ED HPI GENERAL MEDICAL PROBLEM - General Chief Complaint: Respiratory Problem Stated Complaint: [id number] COLD- POSSIBLE PNOMNIA Time Seen by Provider: 12/14/17 18:40 Source of Information: Reports: Patient History Limitations: Reports: No Limitations - History of Present Illness INITIAL COMMENTS - FREE TEXT/NARRATIVE: This 62 yo male reports to the ED due to increased shortness of breath and a cough. The patient reports his symptoms started 3-4 days. The patient reports he continues to smoke, but does not believe that he will ever quit. Onset Date: 12/10/17 Duration: Constant Location: Reports: Chest Severity: Moderate Improves with: Reports: None Worsens with: Reports: None Associated Symptoms: Reports: Chest Pain Chest Pain Score (Numeric/FACES): 5 - Related Data Allergies Allergy/AdvReac Type Severity Reaction Status Date / Time aspirin Allergy Stomach Verified 07/14/17 08:54 Upset codeine Allergy Itching Verified 07/14/17 08:54 pregabalin [From Lyrica] Allergy Anaphylactic Verified 07/14/17 08:54 Shock Home Meds: Home Meds Gabapentin [Neurontin] 600 mg PO TID 12/14/17 [History] Past Medical History HEENT History: Reports: Other (See Below) Other HEENT History: Head injury that knocked out teeth Cardiovascular History: Reports: None Respiratory History: Reports: Other (See Below) Gastrointestinal History: Reports: Other (See Below) Other Gastrointestinal History: lymph nodes on Pancreas. Patient is having scans every few months to watch for growth of lymph nodes Genitourinary History: Reports: BPH, Prostate Disorder Musculoskeletal History: Reports: Back Pain, Chronic, Neck Pain, Chronic, Osteoarthritis Psychiatric History: Reports: Addiction Other Psychiatric History: decreased memory since head injury years ago. Pt states that until recently Fentanyl was his drug of choice Oncologic (Cancer) History: Reports: Prostate - Infectious Disease History Infectious Disease History: Reports: None - Past Surgical History Cardiovascular Surgical History: Reports: None Male Surgical History: Reports: Prostatectomy Other Musculoskeletal Surgeries/Procedures:: head and neck trauma Social & Family History - Family History Family Medical History: Noncontributory - Tobacco Use Smoking Status *Q: Current Every Day Smoker Years of Tobacco use: 40 Packs/Tins Daily: 0.5 Used Tobacco, but Quit: No Second Hand Smoke Exposure: No - Caffeine Use Caffeine Use: Reports: Coffee, Soda, Tea - Alcohol Use Days Per Week of Alcohol Use: 0 - Recreational Drug Use Recreational Drug Use: Yes Drug Use in Last 12 Months: Yes Recreational Drug Type: Reports: Fentanyl Recreational Drug Use Frequency: Binges - Living Situation & Occupation Living situation: Reports: with Family Occupation: Disabled ED ROS GENERAL - Review of Systems Review Of Systems: ROS reveals no pertinent complaints other than HPI. ED EXAM, GENERAL - Physical Exam Exam: See Below Exam Limited By: No Limitations General Appearance: Alert, WD/WN, No Apparent Distress Eye Exam: Bilateral Eye: EOMI, Normal Inspection, PERRL Ears: Normal External Exam, Normal Canal, Hearing Grossly Normal, Normal TMs Nose: Normal Inspection, Normal Mucosa, No Blood Throat/Mouth: Normal Inspection, Normal Lips, Normal Teeth, Normal Gums, Normal Oropharynx, Normal Voice, No Airway Compromise Head: Atraumatic, Normocephalic Neck: Normal Inspection, Supple, Non-Tender, Full Range of Motion Respiratory/Chest: Rhonchi (right lower lobe ) Cardiovascular: Normal Peripheral Pulses, Regular Rate, Rhythm, No Edema, No Gallop, No JVD, No Murmur, No Rub GI/Abdominal: Normal Bowel Sounds, Soft, Non-Tender, No Organomegaly, No Distention, No Abnormal Bruit, No Mass (Male) Exam: Deferred Rectal (Males) Exam: Deferred Back Exam: Normal Inspection, Full Range of Motion, NT Extremities: Normal Inspection, Normal Range of Motion, Non-Tender, Normal Capillary Refill, No Pedal Edema Neurological: Alert, Oriented, CN II-XII Intact, Normal Cognition, Normal Gait, Normal Reflexes, No Motor/Sensory Deficits Psychiatric: Normal Affect, Normal Mood Skin Exam: Warm, Dry, Intact, Normal Color, No Rash Lymphatic: No Adenopathy Course - Vital Signs Last Recorded V/S: Last Vital Signs Temp 99.4 F 12/14/17 20:10 Pulse 79 12/14/17 20:10 Resp 17 12/14/17 20:10 BP 122/73 12/14/17 20:10 Pulse Ox 96 12/14/17 20:10 - Orders/Labs/Meds Orders: Active Orders 24 hr Category Date Time Status RT Aerosol Therapy [RC] ASDIRECTED Care 04/25/18 19:26 Active Labs: Laboratory Tests 12/14/17 12/14/17 Range/Units 18:57 18:57 WBC 19.3 H (5.0-10.0) 10^3/uL RBC 5.20 (4.6-6.2) 10^6/uL Hgb 16.2 (14.0-18.0) g/dL Hct 46.5 (40.0-54.0) % MCV 89.4 (80-100) fL MCH 31.2 (27.0-34.0) pg MCHC 34.8 (33.0-35.0) g/dL Plt Count 311 D (150-450) 10^3/uL Neut % (Auto) 77.4 H (42.2-75.2) % Lymph % (Auto) 12.0 L (20.5-50.1) % [place] % (Auto) 10.0 H (2-8) % Eos % (Auto) 0.3 L (1.0-3.0) % Baso % (Auto) 0.3 (0.0-1.0) % Sodium 137 (135-145) mmol/L Potassium 3.7 (3.6-5.0) mmol/L Chloride 103 (101-111) mmol/L Carbon Dioxide 27.0 (21.0-31.0) mmol/L Anion Gap 10.7 BUN 16 (7-18) mg/dL Creatinine 0.8 (0.6-1.3) mg/dL Est Cr Clr Drug Dosing 95.21 mL/min Estimated GFR (MDRD) > 60 BUN/Creatinine Ratio 20.00 Glucose 73 L (74-105) mg/dL Calcium 9.2 (8.4-10.2) mg/dl Total Bilirubin 0.8 (0.2-1.0) mg/dL AST 29 (10-42) IU/L ALT 36 (10-60) IU/L Alkaline Phosphatase 74 (42-121) IU/L Total Protein 8.9 H (6.7-8.2) g/dl Albumin 4.2 (3.2-5.5) g/dl Globulin 4.7 Albumin/Globulin Ratio 0.89 Meds: Medications Discontinued Medications Generic Name Dose Route Start Last Admin Trade Name Freq PRN Reason Stop Dose Admin Albuterol Confirm 12/14/17 20:57 12/14/17 21:28 Proventil Neb Soln Administered 12/14/17 20:58 Not Given Dose 2.5 mg .ROUTE .STK-MED ONE Albuterol Confirm 12/14/17 20:59 12/14/17 21:00 Proventil Hfa Administered 12/14/17 21:00 Not Given Dose 6.7 gm INH .STK-MED ONE Albuterol/Ipratropium 3 ml 12/14/17 19:25 12/14/17 19:31 Duoneb 3.0-0.5 Mg/3 Ml NEB 12/14/17 19:26 3 ml ONETIME ONE Administration Azithromycin 500 mg 12/14/17 19:36 12/14/17 19:42 Zithromax PO 12/14/17 19:37 500 mg ONETIME ONE Administration Methylprednisolone Sodium Succinate 125 mg 12/14/17 20:09 12/14/17 20:13 Solu-Medrol IVPUSH 12/14/17 20:10 125 mg ONETIME ONE Administration Departure - Departure Disposition: Home, Self-Care 01 Clinical Impression: Bronchitis - Discharge Information Instructions: Acute Bronchitis, Adult, [id number], Upper Respiratory Infection, Adult, [id number] Referrals: PCP,Not In Area [Primary Care Provider] - Forms: ED Department Discharge Additional Instructions: Clinic follow up on Tuesday, sooner if difficulty breathing tylenol or ibuprofen for fever/chills prednisone [id number], 20mgx3 days 10mg x 3 days albuterol inhaler every 4 hours as needed for cough wheezing azithromycin 250mg one daily x 4 days robitussin per package to loosen phlegm and help with cough - My Orders Last 24 Hours: My Active Orders 12/14/17 19:26 RT Aerosol Therapy [RC] ASDIRECTED - Assessment/Plan Last 24 Hours: My Active Orders 12/14/17 19:26 RT Aerosol Therapy [RC] ASDIRECTED <Anaya Alas - Last Filed: 12/15/17 04:08> Course - Re-Assessments/Exams Free Text/Narrative Re-Assessment/Exam: 12/15/17 04:07 Reports slight improvement following neb treatment. Rare loose cough Departure - Departure Time of Disposition: 20:37 Condition: Good
[2017-12-14 19:24] LABS: CHLORIDE,CL 103 mmol/L (101-111); SODIUM,NA 137 mmol/L (135-145)
[2017-12-14] MEDS ORDERED: Albuterol/Ipratropium 3.0-0.5 MG/3 ML Neb Soln NEB ONE (19:25)
[2017-12-14] MEDS ORDERED: Azithromycin 250 MG Tab PO ONE (19:36)
[2017-12-14] MEDS ORDERED: methylPREDNISolone Sodium Succinate 125 MG/2 ML SDV IVPUSH ONE (20:09)
[2017-12-14 20:11] VITALS: BP 122/73
[2017-12-14] MEDS ORDERED: Albuterol 0.083% 2.5 MG/3 ML Neb Soln ONE (20:57)
== END 2017-12-14 21:00 | disposition home or self-care (01) ==
LOC: DL.ED 16:36
DX: J40 Bronchitis, not specified as acute or chronic (principal); F17.210 Nicotine dependence, cigarettes, uncomplicated; Z88.5 Allergy status to narcotic agent; Z88.8 Allergy status to other drugs, medicaments and biological substances
CPT/HCPCS: 36415; 71046; 80053; 85025; 87804; 94640; 96374; 99284; A9270; J2930

== ENCOUNTER 2018-10-10 21:19 | Emergency (ER) | payer MEDICARE, MEDICAID ==
[2018-10-10 21:30] VITALS: BP 118/83
[2018-10-10] MEDS ORDERED: Doxycycline 100 MG Cap PO ONE (22:24)
--- NOTE | 2018-10-10 22:24 | EDM.PDOC ---
ED HPI GENERAL MEDICAL PROBLEM - General Chief Complaint: Skin Complaint Stated Complaint: DOES NOT FEEL GOOD Time Seen by Provider: 10/10/18 21:45 Source of Information: Reports: Patient History Limitations: Reports: No Limitations - History of Present Illness INITIAL COMMENTS - FREE TEXT/NARRATIVE: C/o rash starting on arm face and neck. 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 Mild itching irritation to face and neck. Patchy area spreading to right lower back and above belt. No fever or chills. - Related Data Allergies Allergy/AdvReac Type Severity Reaction Status Date / Time aspirin Allergy Stomach Verified 10/10/18 21:26 Upset codeine Allergy Itching Verified 10/10/18 21:26 pregabalin [From Lyrica] Allergy Anaphylactic Verified 10/10/18 21:26 Shock Home Meds: Home Meds Gabapentin [Neurontin] 600 mg PO TID 12/14/17 [History] Past Medical History HEENT History: Reports: Other (See Below) Other HEENT History: Head injury that knocked out teeth Cardiovascular History: Reports: None Respiratory History: Reports: Other (See Below) Gastrointestinal History: Reports: Other (See Below) Other Gastrointestinal History: lymph nodes on Pancreas. Patient is having scans every few months to watch for growth of lymph nodes Genitourinary History: Reports: BPH, Prostate Disorder Musculoskeletal History: Reports: Back Pain, Chronic, Neck Pain, Chronic, Osteoarthritis Neurological History: Reports: None Psychiatric History: Reports: Addiction Other Psychiatric History: decreased memory since head injury years ago. Pt states that until recently Fentanyl was his drug of choice Endocrine/Metabolic History: Reports: None Hematologic History: Reports: None Immunologic History: Reports: None Oncologic (Cancer) History: Reports: Prostate Dermatologic History: Reports: None - Infectious Disease History Infectious Disease History: Reports: None - Past Surgical History Cardiovascular Surgical History: Reports: None Male Surgical History: Reports: Prostatectomy Other Musculoskeletal Surgeries/Procedures:: head and neck trauma Social & Family History - Family History Family Medical History: Noncontributory - Tobacco Use Smoking Status *Q: Heavy Tobacco Smoker Years of Tobacco use: 40 Packs/Tins Daily: 0.5 - Caffeine Use Caffeine Use: Reports: Coffee, Soda, Tea - Recreational Drug Use Recreational Drug Use: No - Living Situation & Occupation Living situation: Reports: with Family Occupation: Disabled ED ROS GENERAL - Review of Systems Review Of Systems: See Below Constitutional: Denies: Fever, Chills HEENT: Reports: No Symptoms Respiratory: Reports: No Symptoms, Sputum GI/Abdominal: Reports: No Symptoms Musculoskeletal: Reports: No Symptoms Skin: Reports: Pruritis, Rash, Erythema Neurological: Reports: No Symptoms ED EXAM, SKIN/RASH Exam: See Below Exam Limited By: No Limitations General Appearance: Alert, No Apparent Distress Eye Exam: Bilateral Eye: EOMI Ears: Normal External Exam Nose: Normal Inspection Throat/Mouth: Normal Inspection, Normal Lips, Normal Voice Head: Atraumatic, Normocephalic, Facial Tenderness (butterfly pattern red tender ) Neck: Normal Inspection, Full Range of Motion. No: Lymphadenopathy (L), Lymphadenopathy (R) Respiratory/Chest: No Respiratory Distress, Lungs Clear, Normal Breath Sounds Cardiovascular: Regular Rate, Rhythm GI/Abdominal: Normal Bowel Sounds, Soft Extremities: Normal Range of Motion Neurological: Alert, Oriented, Normal Cognition Psychiatric: Flat Affect Skin: Warm, Dry, Rash (red rased papular rash to bilateral foreams, no burrowing pattern apparent, mild excoration to forearms, scattered small superficial excoritation to nape of neck and anterior shaved areas. Red raised butterfly appearance to face hands clear. 3 macular patches above belt buckle. right mid back white papules with red base. ) Course - Vital Signs Last Recorded V/S: Last Vital Signs Temp 98 F 10/10/18 21:27 Pulse 81 10/10/18 21:27 Resp 18 10/10/18 21:27 BP 118/83 10/10/18 21:27 Pulse Ox 99 10/10/18 21:27 - Orders/Labs/Meds Meds: Medications Discontinued Medications Generic Name Dose Route Start Last Admin Trade Name Abelardoq PRN Reason Stop Dose Admin Doxycycline Hyclate 100 mg 10/10/18 22:24 10/10/18 22:29 Vibramycin PO 10/10/18 22:25 100 mg ONETIME ONE Administration Departure - Departure Time of Disposition: 22:25 Disposition: Home, Self-Care 01 Condition: Good Clinical Impression: Folliculitis - Discharge Information *PRESCRIPTION DRUG MONITORING PROGRAM REVIEWED*: Not Applicable Instructions: Folliculitis Forms: ED Department Discharge Additional Instructions: hydrocortisone cream to areas if itching benadryl 25mg every 4 hours as needed doxycycline 100mg oen twice daily for one week clinic follow up one week , sooner if worsening
== END 2018-10-10 22:31 | disposition home or self-care (01) ==
LOC: DL.ED 21:19
DX: L73.9 Follicular disorder, unspecified (principal); F17.210 Nicotine dependence, cigarettes, uncomplicated; Z88.6 Allergy status to analgesic agent; Z88.8 Allergy status to other drugs, medicaments and biological substances
CPT/HCPCS: 99283; A9270-GY

== ENCOUNTER 2018-11-20 18:54 | Emergency (ER) | payer MEDICARE, MEDICAID ==
[2018-11-20 19:02] VITALS: BP 134/85
--- NOTE | 2018-11-20 19:34 | EDM.PDOC ---
ED HPI GENERAL MEDICAL PROBLEM - General Chief Complaint: Skin Complaint Stated Complaint: RASH ON ARM Time Seen by Provider: 11/20/18 19:28 Source of Information: Reports: Patient History Limitations: Reports: No Limitations - History of Present Illness INITIAL COMMENTS - FREE TEXT/NARRATIVE: Rash for 2 months, Was seen in September. Noted rash improved but did not completely resolve, Now worse and itching on arms. Stated "to busy" to follow up in clinic. Itchy rash to arms, has not tried any OTC or taken anything for itching. Bilateral Upper Arm Pain Score (Numeric/FACES): 6 - Related Data Allergies Allergy/AdvReac Type Severity Reaction Status Date / Time aspirin Allergy Stomach Verified 11/20/18 19:03 Upset codeine Allergy Itching Verified 11/20/18 19:03 pregabalin [From Lyrica] Allergy Anaphylactic Verified 11/20/18 19:03 Shock Home Meds: Home Meds Gabapentin [Neurontin] 600 mg PO TID 12/14/17 [History] Past Medical History HEENT History: Reports: Other (See Below) Other HEENT History: Head injury that knocked out teeth Cardiovascular History: Reports: None Respiratory History: Reports: Pneumonia, Recurrent Gastrointestinal History: Reports: Other (See Below) Other Gastrointestinal History: lymph nodes on Pancreas. Patient is having scans every few months to watch for growth of lymph nodes Genitourinary History: Reports: BPH, Prostate Disorder Musculoskeletal History: Reports: Back Pain, Chronic, Neck Pain, Chronic, Osteoarthritis Neurological History: Reports: None Psychiatric History: Reports: Addiction Other Psychiatric History: decreased memory since head injury years ago. Pt states that until recently Fentanyl was his drug of choice Endocrine/Metabolic History: Reports: None Hematologic History: Reports: None Immunologic History: Reports: None Oncologic (Cancer) History: Reports: Prostate Dermatologic History: Reports: None - Infectious Disease History Infectious Disease History: Reports: None - Past Surgical History Cardiovascular Surgical History: Reports: None Male Surgical History: Reports: Prostatectomy Other Musculoskeletal Surgeries/Procedures:: head and neck trauma Social & Family History - Family History Family Medical History: Noncontributory - Tobacco Use Smoking Status *Q: Current Every Day Smoker Years of Tobacco use: 35 Packs/Tins Daily: 0.5 - Caffeine Use Caffeine Use: Reports: Coffee - Recreational Drug Use Recreational Drug Use: No - Living Situation & Occupation Living situation: Reports: with Family Occupation: Disabled ED ROS GENERAL - Review of Systems Review Of Systems: ROS reveals no pertinent complaints other than HPI. ED EXAM, SKIN/RASH Exam: See Below Exam Limited By: No Limitations General Appearance: Alert, No Apparent Distress Eye Exam: Bilateral Eye: EOMI Ears: Normal External Exam Nose: No: Nasal Drainage Throat/Mouth: Normal Inspection, Normal Voice Respiratory/Chest: No Respiratory Distress, Lungs Clear, Normal Breath Sounds Cardiovascular: Normal Peripheral Pulses, Regular Rate, Rhythm Extremities: Normal Range of Motion Neurological: Alert, Oriented Psychiatric: Anxious Skin: Warm, Rash (scattered open lesions upper extremities, scattered red papules to arme back and few on neck collar line. Mid posterior forearms, scaly plaques, no sign of cellulitis, few pustular lesions to upper arms. ) Course - Vital Signs Last Recorded V/S: Last Vital Signs Temp 98.4 F 11/20/18 19:00 Pulse 82 11/20/18 19:00 Resp 17 11/20/18 19:00 BP 134/85 11/20/18 19:00 Pulse Ox 100 11/20/18 19:00 - Orders/Labs/Meds Meds: Medications Discontinued Medications Generic Name Dose Route Start Last Admin Trade Name Freq PRN Reason Stop Dose Admin Doxycycline Hyclate 100 mg 11/20/18 19:35 11/20/18 19:46 Vibramycin PO 11/20/18 19:36 100 mg ONETIME ONE Administration Prednisone 20 mg 11/20/18 19:35 11/20/18 19:46 Prednisone PO 11/20/18 19:36 20 mg ONETIME ONE Administration Departure - Departure Time of Disposition: 19:38 Disposition: Home, Self-Care 01 Condition: Good Clinical Impression: Pruritic rash, Folliculitis - Discharge Information *PRESCRIPTION DRUG MONITORING PROGRAM REVIEWED*: No *COPY OF PRESCRIPTION DRUG MONITORING REPORT IN PATIENT COREY: No Instructions: Rash, [id number] Referrals: PCP,None [Ordering Only Provider] - Forms: ED Department Discharge Additional Instructions: doxycycline 100mg one twice daily for 10 days prednisone 20mg x 2 days, 10mg x 3 days, 5mg x 3 days clinic follow up one week antibiotic ointment twice daily to areas benadryl 25mg every 6 hours as needed for itching
[2018-11-20] MEDS ORDERED: Doxycycline 100 MG Cap PO ONE (19:35)
[2018-11-20] MEDS ORDERED: predniSONE 20 MG Tab PO ONE (19:35)
== END 2018-11-20 19:50 | disposition home or self-care (01) ==
LOC: DL.ED 18:54
DX: L73.9 Follicular disorder, unspecified (principal); R21 Rash and other nonspecific skin eruption; F17.210 Nicotine dependence, cigarettes, uncomplicated; Z88.6 Allergy status to analgesic agent; Z88.5 Allergy status to narcotic agent; Z88.8 Allergy status to other drugs, medicaments and biological substances; Z79.899 Other long term (current) drug therapy
CPT/HCPCS: 99282; A9270

== ENCOUNTER 2019-01-29 17:36 | Emergency (ER) | payer MEDICARE, MEDICAID ==
[2019-01-29 17:51] VITALS: BP 139/86; PULSE 88
[2019-01-29] MEDS ORDERED: Gabapentin 300 MG Cap PO ONE (17:56)
[2019-01-29] MEDS ORDERED: predniSONE 20 MG Tab PO ONE (17:57)
--- NOTE | 2019-01-29 18:09 | EDM.PDOC ---
Scribed by Leslie Ochoa 01/29/19 [id number] for Osmar Post MD ED HPI GENERAL MEDICAL PROBLEM - General Chief Complaint: Skin Complaint Stated Complaint: PERSONAL Time Seen by Provider: 01/29/19 17:51 Source of Information: Reports: Patient, RN, RN Notes Reviewed History Limitations: Reports: No Limitations - History of Present Illness INITIAL COMMENTS - FREE TEXT/NARRATIVE: Patient presents to ER by POV with complaint of rash throughout the body. He has sores in his mouth and on his feet. He was diagnosed with lichen planus by a medical reimbursement manager. He was prescribed Triamcinolone ointment, but his feet sweat and it comes off and he cannot use it in his mouth. He is also out of Gabapentin but I explained that that cannot be filled in the ER. Onset: Gradual Duration: Constant Location: Reports: Generalized Quality: Reports: Other (itching and stinging) Severity: Severe Improves with: Reports: None Worsens with: Reports: None Associated Symptoms: Reports: No Other Symptoms Generalized Pain Score (Numeric/FACES): 8 - Related Data Allergies Allergy/AdvReac Type Severity Reaction Status Date / Time aspirin Allergy Stomach Verified 01/29/19 17:47 Upset codeine Allergy Itching Verified 01/29/19 17:47 pregabalin [From Lyrica] Allergy Anaphylactic Verified 01/29/19 17:47 Shock Home Meds: Home Meds Gabapentin [Neurontin] 600 mg PO TID 12/14/17 [History] Past Medical History HEENT History: Reports: Other (See Below) Other HEENT History: Head injury that knocked out teeth Cardiovascular History: Reports: None Respiratory History: Reports: Pneumonia, Recurrent Gastrointestinal History: Reports: Other (See Below) Other Gastrointestinal History: lymph nodes on Pancreas. Patient is having scans every few months to watch for growth of lymph nodes Genitourinary History: Reports: BPH, Prostate Disorder Musculoskeletal History: Reports: Back Pain, Chronic, Neck Pain, Chronic, Osteoarthritis Neurological History: Reports: None Psychiatric History: Reports: Addiction Other Psychiatric History: decreased memory since head injury years ago. Pt states that until recently Fentanyl was his drug of choice Endocrine/Metabolic History: Reports: None Hematologic History: Reports: None Immunologic History: Reports: None Oncologic (Cancer) History: Reports: Prostate Dermatologic History: Reports: None - Infectious Disease History Infectious Disease History: Reports: None - Past Surgical History Cardiovascular Surgical History: Reports: None Male Surgical History: Reports: Prostatectomy Other Musculoskeletal Surgeries/Procedures:: head and neck trauma Social & Family History - Family History Family Medical History: Noncontributory - Caffeine Use Caffeine Use: Reports: Coffee - Living Situation & Occupation Living situation: Reports: with Family Occupation: Disabled ED ROS GENERAL - Review of Systems Review Of Systems: ROS reveals no pertinent complaints other than HPI. ED EXAM, SKIN/RASH Exam: See Below Exam Limited By: No Limitations General Appearance: Alert, No Apparent Distress, Thin, Other (chronically ill appearing. ) Nose: Normal Inspection Throat/Mouth: Normal Lips, Other (dentures. White oral plaguing at the buchal membrane bilateral.) Head: Atraumatic, Normocephalic Neck: Normal Inspection Respiratory/Chest: No Respiratory Distress, Other (lungs diminished but clear) Cardiovascular: Regular Rate, Rhythm Back Exam: Full Range of Motion. No: Vertebral Tenderness Extremities: Normal Range of Motion Neurological: Alert, Oriented, No Motor/Sensory Deficits Psychiatric: Normal Mood Skin: Other (diffuse excoriated maculopapular lesions consistent with recent diagnosis of lichen planus.) Course - Vital Signs Last Recorded V/S: Last Vital Signs Temp 98.4 F 01/29/19 17:48 Pulse 88 01/29/19 17:48 Resp 20 01/29/19 17:48 BP 139/86 01/29/19 17:48 Pulse Ox 100 01/29/19 17:48 - Orders/Labs/Meds Meds: Medications Discontinued Medications Generic Name Dose Route Start Last Admin Trade Name Freq PRN Reason Stop Dose Admin Gabapentin 600 mg 01/29/19 17:56 Neurontin PO 01/29/19 17:57 ONETIME ONE Prednisone 60 mg 01/29/19 17:57 Prednisone PO 01/29/19 17:58 ONETIME ONE Departure - Departure Time of Disposition: 18:08 Disposition: Home, Self-Care 01 Condition: Good Clinical Impression: Lichen planus - Discharge Information *PRESCRIPTION DRUG MONITORING PROGRAM REVIEWED*: Yes *COPY OF PRESCRIPTION DRUG MONITORING REPORT IN PATIENT COREY: Not Applicable Instructions: Lichen Planus Forms: ED Department Discharge Additional Instructions: Rx: Prednisone 20mg *Take with food. Follow up with your doctor as planned. I have read and agree with the documentation that has been completed regarding this visit. By signing this record, I attest that the documentation was completed in my physical presence and is an accurate record of the encounter.
== END 2019-01-29 18:04 | disposition home or self-care (01) ==
LOC: DL.ED 17:36
DX: L43.9 Lichen planus, unspecified (principal); Z88.8 Allergy status to other drugs, medicaments and biological substances; Z79.899 Other long term (current) drug therapy
CPT/HCPCS: 99282; 99283

== ENCOUNTER 2019-05-28 21:09 | Emergency (ER) | payer MEDICARE, MEDICAID ==
[2019-05-28] MEDS ORDERED: predniSONE 20 MG Tab PO ONE (21:10)
[2019-05-28] MEDS ORDERED: Amoxicillin/Clavulanate K 875-125 MG Tab PO ONE (21:10)
[2019-05-28 21:22] VITALS: BP 132/88; PULSE 94
[2019-05-28 21:57] LABS: ANION GAP 11.5; CHLORIDE,CL 105 mmol/L (101-111); SODIUM,NA 140 mmol/L (135-145)
--- NOTE | 2019-05-28 22:56 | EDM.PDOC ---
ED HPI GENERAL MEDICAL PROBLEM - General Chief Complaint: Respiratory Problem Stated Complaint: CONGESTION Time Seen by Provider: 05/28/19 22:30 Source of Information: Reports: Patient History Limitations: Reports: No Limitations - History of Present Illness INITIAL COMMENTS - FREE TEXT/NARRATIVE: Cold sx one week cough worse past 2 days, fever, chest congestion. Hx frequent pneumonia, smoker Has tried jeane D, not helping. No GI sx, no sore throat. 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) Chest Pain Score (Numeric/FACES): 7 - Related Data Allergies Allergy/AdvReac Type Severity Reaction Status Date / Time aspirin Allergy Stomach Verified 05/28/19 21:12 Upset codeine Allergy Itching Verified 05/28/19 21:12 pregabalin [From Lyrica] Allergy Anaphylactic Verified 05/28/19 21:12 Shock Home Meds: Home Meds Gabapentin [Neurontin] 600 mg PO TID 12/14/17 [History] Past Medical History HEENT History: Reports: Other (See Below) Other HEENT History: Head injury that knocked out teeth Cardiovascular History: Reports: None Respiratory History: Reports: Pneumonia, Recurrent Gastrointestinal History: Reports: Other (See Below) Other Gastrointestinal History: lymph nodes on Pancreas. Patient is having scans every few months to watch for growth of lymph nodes Genitourinary History: Reports: BPH, Prostate Disorder Musculoskeletal History: Reports: Back Pain, Chronic, Neck Pain, Chronic, Osteoarthritis Neurological History: Reports: None Psychiatric History: Reports: Addiction Other Psychiatric History: decreased memory since head injury years ago. Pt states that until recently Fentanyl was his drug of choice Endocrine/Metabolic History: Reports: None Hematologic History: Reports: None Immunologic History: Reports: None Oncologic (Cancer) History: Reports: Prostate Dermatologic History: Reports: None - Infectious Disease History Infectious Disease History: Reports: Hepatitis C - Past Surgical History Head Surgeries/Procedures: Reports: None Cardiovascular Surgical History: Reports: None Male Surgical History: Reports: Prostatectomy Other Musculoskeletal Surgeries/Procedures:: head and neck trauma Social & Family History - Family History Family Medical History: Noncontributory - Tobacco Use Smoking Status *Q: Current Every Day Smoker Years of Tobacco use: 40 Packs/Tins Daily: 0.5 - Caffeine Use Caffeine Use: Reports: Coffee - Recreational Drug Use Recreational Drug Use: No - Living Situation & Occupation Living situation: Reports: with Family Occupation: Disabled ED ROS GENERAL - Review of Systems Review Of Systems: ROS reveals no pertinent complaints other than HPI. ED EXAM, GENERAL - Physical Exam Exam: See Below Exam Limited By: No Limitations General Appearance: Alert, No Apparent Distress, Thin Eye Exam: Bilateral Eye: EOMI Ears: Normal External Exam, Hearing Grossly Normal, Normal TMs Nose: Normal Inspection Throat/Mouth: Normal Inspection Head: Atraumatic, Normocephalic Neck: Normal Inspection Respiratory/Chest: No Respiratory Distress, Decreased Breath Sounds, Wheezing ( upper anterior clears with cough), Other (rare bronchial cough non productive) Cardiovascular: Normal Peripheral Pulses, Regular Rate, Rhythm GI/Abdominal: Normal Bowel Sounds, Soft Extremities: Normal Inspection Psychiatric: Flat Affect Skin Exam: Warm, Dry, Wound/Incision (multiple pick [place] to forearms bilaterally) Course - Vital Signs Last Recorded V/S: Last Vital Signs Temp 98.8 F 05/28/19 21:13 Pulse 94 05/28/19 21:13 Resp 16 05/28/19 21:13 BP 132/88 05/28/19 21:13 Pulse Ox 100 05/28/19 21:13 - Orders/Labs/Meds Orders: Active Orders 24 hr Category Date Time Status Chest 1V Frontal [CR] Urgent Exams 05/28/19 21:38 Taken CULTURE BLOOD [BC] Stat Lab 05/28/19 21:28 Received Blood Culture x2 Reflex Set [OM.PC] Stat Oth 05/28/19 21:38 Ordered Labs: Laboratory Tests 05/28/19 05/28/19 05/28/19 Range/Units 21:28 21:28 21:28 WBC 12.5 H (5.0-10.0) 10^3/uL RBC 4.83 (4.6-6.2) 10^6/uL Hgb 15.4 (14.0-18.0) g/dL Hct 44.0 (40.0-54.0) % MCV 91.1 (80-100) fL MCH 31.9 (27.0-34.0) pg MCHC 35.0 (33.0-35.0) g/dL Plt Count 170 D (150-450) 10^3/uL Neut % (Auto) 77.9 H (42.2-75.2) % Lymph % (Auto) 9.7 L (20.5-50.1) % Bent % (Auto) 11.4 H (2-8) % Eos % (Auto) 0.8 L (1.0-3.0) % Baso % (Auto) 0.2 (0.0-1.0) % Sodium 140 (135-145) mmol/L Potassium 3.5 L (3.6-5.0) mmol/L Chloride 105 (101-111) mmol/L Carbon Dioxide 27.0 (21.0-31.0) mmol/L Anion Gap 11.5 BUN 9 (7-18) mg/dL Creatinine 0.7 (0.6-1.3) mg/dL Est Cr Clr Drug Dosing 108.24 mL/min Estimated GFR (MDRD) > 60 BUN/Creatinine Ratio 12.85 Glucose 95 (74-105) mg/dL Lactic Acid 1.4 (0.5-2.2) mmol/L Calcium 8.4 (8.4-10.2) mg/dl Total Bilirubin 0.6 (0.2-1.0) mg/dL AST 15 (10-42) IU/L ALT 11 (10-60) IU/L Alkaline Phosphatase 60 (42-121) IU/L Total Protein 7.3 (6.7-8.2) g/dl Albumin 3.9 (3.2-5.5) g/dl Globulin 3.4 Albumin/Globulin Ratio 1.15 Urine Color (YELLOW) Urine Appearance (CLEAR) Urine pH (5.0-9.0) Ur Specific [place] (1.005-1.030) Urine Protein (NEGATIVE) Urine Glucose (UA) (NEGATIVE) Urine Ketones (NEGATIVE) Urine Occult Blood (NEGATIVE) Urine Nitrite (NEGATIVE) Urine Bilirubin (NEGATIVE) Urine Urobilinogen (0.2-1.0) mg/dL Ur Leukocyte Esterase (NEGATIVE) 05/28/19 Range/Units 23:16 WBC (5.0-10.0) 10^3/uL RBC (4.6-6.2) 10^6/uL Hgb (14.0-18.0) g/dL Hct (40.0-54.0) % MCV (80-100) fL MCH (27.0-34.0) pg MCHC (33.0-35.0) g/dL Plt Count (150-450) 10^3/uL Neut % (Auto) (42.2-75.2) % Lymph % (Auto) (20.5-50.1) % Bent % (Auto) (2-8) % Eos % (Auto) (1.0-3.0) % Baso % (Auto) (0.0-1.0) % Sodium (135-145) mmol/L Potassium (3.6-5.0) mmol/L Chloride (101-111) mmol/L Carbon Dioxide (21.0-31.0) mmol/L Anion Gap BUN (7-18) mg/dL Creatinine (0.6-1.3) mg/dL Est Cr Clr Drug Dosing mL/min Estimated GFR (MDRD) BUN/Creatinine Ratio Glucose (74-105) mg/dL Lactic Acid (0.5-2.2) mmol/L Calcium (8.4-10.2) mg/dl Total Bilirubin (0.2-1.0) mg/dL AST (10-42) IU/L ALT (10-60) IU/L Alkaline Phosphatase (42-121) IU/L Total Protein (6.7-8.2) g/dl Albumin (3.2-5.5) g/dl Globulin Albumin/Globulin Ratio Urine Color Yellow (YELLOW) Urine Appearance Clear (CLEAR) Urine pH 7.0 (5.0-9.0) Ur Specific [place] 1.020 (1.005-1.030) Urine Protein Negative (NEGATIVE) Urine Glucose (UA) Negative (NEGATIVE) Urine Ketones Negative (NEGATIVE) Urine Occult Blood Negative (NEGATIVE) Urine Nitrite Negative (NEGATIVE) Urine Bilirubin Negative (NEGATIVE) Urine Urobilinogen 1.0 (0.2-1.0) mg/dL Ur Leukocyte Esterase Negative (NEGATIVE) Meds: Medications Discontinued Medications Generic Name Dose Route Start Last Admin Trade Name Freq PRN Reason Stop Dose Admin Amoxicillin/Clavulanate Potassium Confirm 05/28/19 23:08 05/28/19 23:20 Augmentin 875 Mg/125 Mg Administered 05/28/19 23:09 Not Given Dose 2 tab .ROUTE .STK-MED ONE Prednisone Confirm 05/28/19 23:09 05/28/19 23:20 Prednisone Administered 05/28/19 23:10 Not Given Dose 40 mg .ROUTE .STK-MED ONE - Radiology Interpretation Free Text/Narrative:: [facility] [place] [facility] Final Radiology Report Call: [phone] assistance Online chat: [email or web address] Name: JAYDEN PAYNE Age: 63Years M Date: 05/28/2019 SSN: -- : [id number] Study: XR CHEST 1 VIEW FRONTAL Requesting Physician: YEIMI RILEY Images: 1 Addl Studies: Provided Clinical History: Contrast: Contrast Medium: Contrast Amount: Contrast Method: CONFIDENTIALITY STATEMENT This report is intended only for use by the referring physician, and only in accordance with law. If you received this in error, call [phone]. Page 1 of 1 PROCEDURE INFORMATION: Exam: XR Chest, 1 View Exam date and time: 05/28/2019 9:43 PM Clinical history: 63 years old, male; Cough and wheezing TECHNIQUE: Imaging protocol: XR of the chest Views: 1 view. COMPARISON: CR Chest 2V 12/14/2017 6:58 PM FINDINGS: Lungs: Unremarkable. No consolidation. Pleural space: Unremarkable. No pleural effusion. No pneumothorax. Heart/Mediastinum: Unremarkable. No cardiomegaly. Bones/joints: Unremarkable. IMPRESSION: No acute findings. Thank you for allowing us to participate in the care of your patient. Dictated and Authenticated by: Jt Eddy MD 05/28/2019 10:30 PM Central Time ([place] & [place] Departure - Departure Time of Disposition: 22:52 Disposition: Home, Self-Care 01 Condition: Good Clinical Impression: Bronchitis - Discharge Information *PRESCRIPTION DRUG MONITORING PROGRAM REVIEWED*: No *COPY OF PRESCRIPTION DRUG MONITORING REPORT IN PATIENT COREY: No Instructions: Upper Respiratory Infection, Adult, [id number] Forms: ED Department Discharge Additional Instructions: increase fluids decrease smoking humidifier in room augmentin 875mg one twice daily for one week prednisone 20mg 2 tonight then 20mg x 3 days then 10mg daily robitussin for cough tesselon 200mg one every 8 hours as needed for cough clinic follow up to recheck later this week - My Orders Last 24 Hours: My Active Orders 05/28/19 21:28 CULTURE BLOOD [BC] Stat 05/28/19 21:38 Chest 1V Frontal [CR] Urgent Blood Culture x2 Reflex Set [OM.PC] Stat - Assessment/Plan Last 24 Hours: My Active Orders 05/28/19 21:28 CULTURE BLOOD [BC] Stat 05/28/19 21:38 Chest 1V Frontal [CR] Urgent Blood Culture x2 Reflex Set [OM.PC] Stat
[2019-05-28] MEDS ORDERED: Amoxicillin/Clavulanate K 875-125 MG Tab ONE (23:08)
[2019-05-28] MEDS ORDERED: predniSONE 20 MG Tab ONE (23:09)
== END 2019-05-28 23:01 | disposition home or self-care (01) ==
LOC: DL.ED 21:09
DX: J40 Bronchitis, not specified as acute or chronic (principal); F17.210 Nicotine dependence, cigarettes, uncomplicated; Z88.6 Allergy status to analgesic agent; Z88.5 Allergy status to narcotic agent; Z88.8 Allergy status to other drugs, medicaments and biological substances
CPT/HCPCS: 36415; 71045; 80053; 81003; 83605; 85025; 87040; 99283; A9270

== ENCOUNTER 2019-11-08 12:25 | Emergency (ER) | payer MEDICARE, MEDICAID ==
[2019-11-08 12:30] VITALS: BP 147/82; PULSE 87
--- NOTE | 2019-11-08 13:38 | EDM.PDOC ---
ED HPI GENERAL MEDICAL PROBLEM - General Chief Complaint: Respiratory Problem Stated Complaint: RESPIRATORY PROBLEM Time Seen by Provider: 11/08/19 12:45 Source of Information: Reports: Patient History Limitations: Reports: No Limitations - History of Present Illness INITIAL COMMENTS - FREE TEXT/NARRATIVE: ED via EMS with c/o chronic pain, headache and skin sores back on arms, left greater than right. Has not taken anything for headache. No nausea or vomiting, No known fever, denied cough. Generalized Pain Score (Numeric/FACES): 7 - Related Data Allergies Allergy/AdvReac Type Severity Reaction Status Date / Time aspirin Allergy Stomach Verified 11/08/19 12:31 Upset codeine Allergy Itching Verified 11/08/19 12:31 pregabalin [From Lyrica] Allergy Anaphylactic Verified 11/08/19 12:31 Shock Home Meds: Home Meds Gabapentin [Neurontin] 600 mg PO TID 12/14/17 [History] Hydrocodone/Acetaminophen [Hydrocodon-Acetaminophn 10-325] 1 tab PO Q12HR [History] Past Medical History HEENT History: Reports: Other (See Below) Other HEENT History: Head injury that knocked out teeth Cardiovascular History: Reports: None Respiratory History: Reports: Pneumonia, Recurrent Gastrointestinal History: Reports: Other (See Below) Other Gastrointestinal History: lymph nodes on Pancreas. Patient is having scans every few months to watch for growth of lymph nodes Genitourinary History: Reports: BPH, Prostate Disorder Musculoskeletal History: Reports: Back Pain, Chronic, Neck Pain, Chronic, Osteoarthritis Neurological History: Reports: None Psychiatric History: Reports: Addiction Other Psychiatric History: decreased memory since head injury years ago. Pt states that until recently Fentanyl was his drug of choice Endocrine/Metabolic History: Reports: None Hematologic History: Reports: None Immunologic History: Reports: None Oncologic (Cancer) History: Reports: Prostate Dermatologic History: Reports: None - Infectious Disease History Infectious Disease History: Reports: Hepatitis C - Past Surgical History Head Surgeries/Procedures: Reports: None Cardiovascular Surgical History: Reports: None Male Surgical History: Reports: Prostatectomy Other Musculoskeletal Surgeries/Procedures:: head and neck trauma Social & Family History - Family History Family Medical History: Noncontributory - Tobacco Use Smoking Status *Q: Current Every Day Smoker Years of Tobacco use: 40 Packs/Tins Daily: 0.5 - Caffeine Use Caffeine Use: Reports: None - Recreational Drug Use Recreational Drug Use: Yes Drug Use in Last 12 Months: Yes Recreational Drug Type: Reports: Fentanyl Recreational Drug Use Frequency: Monthly - Living Situation & Occupation Living situation: Reports: with Family Occupation: Disabled ED ROS GENERAL - Review of Systems Review Of Systems: Comprehensive ROS is negative, except as noted in HPI. ED EXAM, GENERAL - Physical Exam Exam: See Below Exam Limited By: No Limitations General Appearance: Alert, No Apparent Distress, Thin Eye Exam: Bilateral Eye: EOMI Ears: Normal External Exam, Normal TMs Nose: Normal Inspection Throat/Mouth: Normal Inspection Head: Atraumatic, Normocephalic Neck: Normal Inspection Respiratory/Chest: No Respiratory Distress Cardiovascular: Normal Peripheral Pulses, Regular Rate, Rhythm GI/Abdominal: Normal Bowel Sounds, Soft Neurological: Alert, Oriented Psychiatric: Flat Affect Skin Exam: Warm, Other (bulous lesions raised acattered left forearm, smaller macular right forearm. minimal erythema to base of lesions,) Course - Vital Signs Last Recorded V/S: Last Vital Signs Temp 97.5 F 11/08/19 12:27 Pulse 87 11/08/19 12:27 Resp 16 11/08/19 12:27 BP 147/82 H 11/08/19 12:27 Pulse Ox 100 11/08/19 12:27 - Orders/Labs/Meds Orders: Active Orders 24 hr Category Date Time Status Isolation [COMM] Routine Oth 11/08/19 12:36 Active Labs: Laboratory Tests 11/08/19 11/08/19 11/08/19 Range/Units 13:47 13:47 13:47 WBC 6.9 (5.0-10.0) 10^3/uL RBC 5.14 (4.6-6.2) 10^6/uL Hgb 16.1 (14.0-18.0) g/dL Hct 46.8 (40.0-54.0) % MCV 91.1 (80-100) fL MCH 31.3 (27.0-34.0) pg MCHC 34.4 (33.0-35.0) g/dL Plt Count 206 (150-450) 10^3/uL Neut % (Auto) 66.1 (42.2-75.2) % Lymph % (Auto) 18.4 L (20.5-50.1) % [place] % (Auto) 12.5 H (2-8) % Eos % (Auto) 2.6 (1.0-3.0) % Baso % (Auto) 0.4 (0.0-1.0) % Sodium 141 (136-145) mmol/L Potassium 4.6 (3.5-5.1) mmol/L Chloride 105 (98-107) mmol/L Carbon Dioxide 32 (21-32) mmol/L Anion Gap 8.6 (7-13) mEq/L BUN 13 (7-18) mg/dL Creatinine 0.78 (0.70-1.30) mg/dL Est Cr Clr Drug Dosing 90.97 mL/min Estimated GFR (MDRD) > 60 BUN/Creatinine Ratio 16.7 (No establ ref range) Glucose 91 (74-99) mg/dL Lactic Acid 1.0 (0.4-2.0) mmol/L Calcium 8.3 L (8.5-10.1) mg/dL Total Bilirubin 0.7 (0.2-1.0) mg/dL AST 10 L (15-37) U/L ALT 19 (16-63) U/L Alkaline Phosphatase 67 (46-116) U/L Total Protein 7.4 (6.4-8.2) g/dL Albumin 4.0 (3.4-5.0) g/dL Globulin 3.4 Albumin/Globulin Ratio 1.2 Meds: Medications Discontinued Medications Generic Name Dose Route Start Last Admin Trade Name Freq PRN Reason Stop Dose Admin Ceftriaxone Sodium 1 gm/ 0 gm 11/08/19 14:13 Lidocaine HCl 2.1 ml IM 11/08/19 14:14 ONETIME ONE Departure - Departure Time of Disposition: 14:14 Disposition: Home, Self-Care 01 Condition: Good Clinical Impression: Folliculitis, Pruritic rash Chronic pain Qualifiers: Chronic pain type: chronic pain syndrome Qualified Code(s): G89.4 - Chronic pain syndrome - Discharge Information *PRESCRIPTION DRUG MONITORING PROGRAM REVIEWED*: No *COPY OF PRESCRIPTION DRUG MONITORING REPORT IN PATIENT COREY: No Instructions: Folliculitis Forms: ED Department Discharge Additional Instructions: follow up in clinic if rash not improving alternte [place] nd ibuprofen every 4 hours as needed for discomfort do not exceed more than 300mg of tylenol per day increase fluid intake mupirocin ointment to sore on arms 3 times daily augmentin 875mg one twice daily for one week Sepsis Event Note - Evaluation Sepsis Screening Result: No Definite Risk - Focused Exam Vital Signs: Vital Signs Temp Pulse Resp BP Pulse Ox 11/08/19 12:27 97.5 F 87 16 147/82 H 100 Date Exam was Performed: 11/08/19 Time Exam was Performed: 14:34 - My Orders Last 24 Hours: My Active Orders 11/08/19 12:36 Isolation [COMM] Routine - Assessment/Plan Last 24 Hours: My Active Orders 11/08/19 12:36 Isolation [COMM] Routine
[2019-11-08] MEDS ORDERED: cefTRIAXone 1 GM, Lidocaine 1% 2.1 ML IM ONE ×2 (14:13)
[2019-11-08 14:23] LABS: ANION GAP 8.6 mEq/L (7-13); CHLORIDE,CL 105 mmol/L (98-107); SODIUM,NA 141 mmol/L (136-145)
== END 2019-11-08 14:39 | disposition home or self-care (01) ==
LOC: DL.ED 12:25
DX: L73.9 Follicular disorder, unspecified (principal); G89.4 Chronic pain syndrome; F17.210 Nicotine dependence, cigarettes, uncomplicated; Z88.8 Allergy status to other drugs, medicaments and biological substances; Z88.6 Allergy status to analgesic agent; Z88.5 Allergy status to narcotic agent
CPT/HCPCS: 36415; 80053; 83605; 85025; 87804; 96372; 99283; 99284; J0696; J2001

== ENCOUNTER 2020-01-20 17:05 | Emergency (ER) | payer MEDICARE, MEDICAID ==
[2020-01-20 17:19] VITALS: BP 119/103; PULSE 89
--- NOTE | 2020-01-20 17:27 | EDM.PDOC ---
ED HPI GENERAL MEDICAL PROBLEM - General Chief Complaint: Skin Complaint Stated Complaint: SORES ON THE ARM FEELING HOT Time Seen by Provider: 01/20/20 17:27 Source of Information: Reports: Patient, Old Records, RN, RN Notes Reviewed History Limitations: Reports: No Limitations - History of Present Illness INITIAL COMMENTS - FREE TEXT/NARRATIVE: Pt with Hx of chronic lichen planus presents with c/o "skin infection" to the B/ L arms from his chronic skin lesions. He noticed increasing redness and tenderness a few days ago and felt feverish last night. He reports a flare of lichen planus lesions a week or two ago, and thinks he scratches his arms without thinking about it. Onset: Gradual Duration: Day(s): (2), Chronic, Recurring Location: Reports: Upper Extremity, Left, Upper Extremity, Right Quality: Reports: Ache Severity: Mild Improves with: Reports: None Worsens with: Reports: None Associated Symptoms: Reports: No Other Symptoms - Related Data Allergies Allergy/AdvReac Type Severity Reaction Status Date / Time aspirin Allergy Stomach Verified 01/20/20 17:19 Upset codeine Allergy Itching Verified 01/20/20 17:19 pregabalin [From Lyrica] Allergy Anaphylactic Verified 01/20/20 17:19 Shock Home Meds: Home Meds Gabapentin [Neurontin] 600 mg PO ASDIRECTED 12/14/17 [History] Hydrocodone/Acetaminophen [Hydrocodon-Acetaminophn 10-325] 1 tab PO Q12HR [History] Past Medical History HEENT History: Reports: Other (See Below) Other HEENT History: Head injury that knocked out teeth Cardiovascular History: Reports: None Respiratory History: Reports: Pneumonia, Recurrent Gastrointestinal History: Reports: Other (See Below) Other Gastrointestinal History: lymph nodes on Pancreas. Patient is having scans every few months to watch for growth of lymph nodes Genitourinary History: Reports: BPH, Prostate Disorder Musculoskeletal History: Reports: Back Pain, Chronic, Neck Pain, Chronic, Osteoarthritis Neurological History: Reports: None Psychiatric History: Reports: Addiction Other Psychiatric History: decreased memory since head injury years ago. Endocrine/Metabolic History: Reports: None Hematologic History: Reports: None Immunologic History: Reports: None Oncologic (Cancer) History: Reports: Prostate Dermatologic History: Reports: Other (See Below) (Lichen Planus) - Infectious Disease History Infectious Disease History: Reports: Hepatitis C - Past Surgical History Head Surgeries/Procedures: Reports: None Cardiovascular Surgical History: Reports: None Male Surgical History: Reports: Prostatectomy Other Musculoskeletal Surgeries/Procedures:: head and neck trauma Social & Family History - Family History Family Medical History: Noncontributory - Tobacco Use Smoking Status *Q: Current Every Day Smoker Years of Tobacco use: 40 Packs/Tins Daily: 0.5 - Caffeine Use Caffeine Use: Reports: None - Recreational Drug Use Recreational Drug Use: Yes - Living Situation & Occupation Living situation: Reports: with Family Occupation: Disabled ED ROS GENERAL - Review of Systems Review Of Systems: Comprehensive ROS is negative, except as noted in HPI. ED EXAM, SKIN/RASH Exam: See Below Exam Limited By: No Limitations General Appearance: Alert, WD/WN, No Apparent Distress Nose: Normal Inspection Throat/Mouth: Normal Inspection Head: Atraumatic, Normocephalic Neck: Normal Inspection Respiratory/Chest: No Respiratory Distress, Lungs Clear, Normal Breath Sounds, No Accessory Muscle Use, Chest Non-Tender Cardiovascular: Regular Rate, Rhythm GI/Abdominal: Normal Bowel Sounds, Soft, Non-Tender Back Exam: Normal Inspection Extremities: Normal Inspection Neurological: Alert, Oriented, No Motor/Sensory Deficits Psychiatric: Normal Mood Skin: Rash (generalized rash consistent with Hx of lichen planus with exoriationand secondary infection to B/L forearms) Course - Vital Signs Last Recorded V/S: Last Vital Signs Temp 99.2 F 01/20/20 17:16 Pulse 89 01/20/20 17:16 Resp 20 01/20/20 17:16 BP 119/103 H 01/20/20 17:16 Pulse Ox 99 01/20/20 17:16 - Orders/Labs/Meds Meds: Medications Discontinued Medications Generic Name Dose Route Start Last Admin Trade Name Freq PRN Reason Stop Dose Admin Cephalexin 500 mg 01/20/20 17:28 Keflex PO 01/20/20 17:29 ONETIME ONE Doxycycline Hyclate 100 mg 01/20/20 17:28 Vibramycin PO 01/20/20 17:29 ONETIME ONE Prednisone 60 mg 01/20/20 17:29 Prednisone PO 01/20/20 17:30 ONETIME ONE Departure - Departure Time of Disposition: 17:40 Disposition: Home, Self-Care 01 Condition: Good Clinical Impression: Lichen planus follicularis, Carpal tunnel syndrome on left Cellulitis of upper extremity Qualifiers: Laterality: unspecified laterality Qualified Code(s): L03.119 - Cellulitis of unspecified part of limb - Discharge Information *PRESCRIPTION DRUG MONITORING PROGRAM REVIEWED*: Not Applicable *COPY OF PRESCRIPTION DRUG MONITORING REPORT IN PATIENT COREY: Not Applicable Instructions: Cellulitis, Adult, [id number], Lichen Planus, Carpal Tunnel Syndrome Forms: ED Department Discharge Additional Instructions: Rx: Cephalexin 500mg Rx: Doxycycline 100mg Rx: Prednisone 20mg Follow up in clinic this week with Dr. Vergara for recheck and orthopedic referral for carpal tunnel evaluation. Sepsis Event Note - Evaluation Sepsis Screening Result: No Definite Risk - Focused Exam Vital Signs: Vital Signs Temp Pulse Resp BP Pulse Ox 01/20/20 17:16 99.2 F 89 20 119/103 H 99 Date Exam was Performed: 01/20/20 Time Exam was Performed: 17:40
[2020-01-20] MEDS ORDERED: Doxycycline 100 MG Cap PO ONE (17:28)
[2020-01-20] MEDS ORDERED: Cephalexin 500 MG Cap PO ONE (17:28)
[2020-01-20] MEDS ORDERED: predniSONE 20 MG Tab PO ONE (17:29)
== END 2020-01-20 17:42 | disposition home or self-care (01) ==
LOC: DL.ED 17:05
DX: G56.02 Carpal tunnel syndrome, left upper limb (principal); L66.1 Lichen planopilaris; L03.114 Cellulitis of left upper limb; L03.113 Cellulitis of right upper limb; F17.210 Nicotine dependence, cigarettes, uncomplicated; Z88.6 Allergy status to analgesic agent; Z88.5 Allergy status to narcotic agent; Z88.8 Allergy status to other drugs, medicaments and biological substances
CPT/HCPCS: 99282; A9270; J7512; 99284

== ENCOUNTER 2020-08-12 21:19 | Emergency (ER) | payer MEDICARE, MEDICAID ==
[2020-08-12] MEDS ORDERED: Ondansetron 4 MG Tab.DIS PO ONE (21:20)
[2020-08-12 22:12] VITALS: BP 132/86; PULSE 73
[2020-08-12 22:32] LABS: ANION GAP 15.2 mEq/L (7-13); CHLORIDE,CL 102 mmol/L (98-107); SODIUM,NA 138 mmol/L (136-145)
[2020-08-13] MEDS ORDERED: Ondansetron 4 MG/2 ML SDV ONE (00:17)
[2020-08-13] MEDS ORDERED: Ondansetron 4 MG Tab.DIS ONE (00:22)
--- NOTE | 2020-08-13 06:13 | CT ---
PROCEDURE INFORMATION: Exam: CT Head Without Contrast Exam date and time: 08/12/2020 9:24 PM Age: 89 years (approx. age) old Clinical indication: Other: Stroke protocol TECHNIQUE: Imaging protocol: Computed tomography of the head without contrast. Radiation optimization: All CT scans at this facility use at least one of these dose optimization techniques: automated exposure control; mA and/or kV adjustment per patient size (includes targeted exams where dose is matched to clinical indication); or iterative reconstruction. Other technique: STROKE PROTOCOL was implemented. COMPARISON: No relevant prior studies available. FINDINGS: Brain: There is mild diffuse cerebral atrophy present. There is patchy low attenuation in the white matter of both cerebral hemispheres which is a nonspecific finding but most likely secondary to mild chronic microvascular ischemic disease. No evidence of acute ischemia. No hemorrhage. Cerebral ventricles: No ventriculomegaly. Bones/joints: Unremarkable. No acute fracture. Paranasal sinuses: Visualized sinuses are unremarkable. No fluid levels. Mastoid air cells: Visualized mastoid air cells are well aerated. Vasculature: Calcified atherosclerosis of the intracranial ICAs and vertebrobasilar circulation. Soft tissues: Unremarkable. IMPRESSION: No acute intracranial abnormality. No evidence of acute ischemia. ASSESSMENT: ASPECTS ([place] Stroke Program Early CT Score) is 10.
== END 2020-08-13 00:23 | disposition home or self-care (01) ==
LOC: DL.ED 21:19
DX: R41.82 Altered mental status, unspecified (principal); F19.10 Other psychoactive substance abuse, uncomplicated; R11.2 Nausea with vomiting, unspecified; R53.1 Weakness; Z20.828 Contact with and (suspected) exposure to other viral communicable diseases
CPT/HCPCS: 36415; 70450; 80053; 82962; 84484; 85025; 85379; 85610; 87040; 99285; A9270; U0002

== ENCOUNTER 2021-02-27 20:16 | Emergency (ER) | payer MEDICARE, MEDICAID ==
[2021-02-27] MEDS ORDERED: Ondansetron 4 MG/2 ML SDV IVPUSH ONE (20:58)
[2021-02-27] MEDS ORDERED: Sodium Chloride 0.9% 1,000 ML IV ONE (20:58)
[2021-02-27 21:25] LABS: ANION GAP 16.8 mEq/L (7-13); CHLORIDE,CL 103 mmol/L (98-107); SODIUM,NA 142 mmol/L (136-145)
[2021-02-27] MEDS ORDERED: Iopamidol 612 MG/ML 100 ML Bottle IVPUSH ONE (21:27)
--- NOTE | 2021-02-27 22:19 | EDM.PDOC ---
ED HPI GENERAL MEDICAL PROBLEM - General Chief Complaint: Abdominal Pain Stated Complaint: DONT FEEL GOOD, STOMACH ETC. Time Seen by Provider: 02/27/21 20:30 Source of Information: Reports: Patient History Limitations: Reports: No Limitations - History of Present Illness INITIAL COMMENTS - FREE TEXT/NARRATIVE: ED with c/o RLQ pain x 2 days, nausea decreased appetite. No vomiting or diarrhea. No fever or chills. Normal BM. No urinary sx. No radiation of pain, Right Abdominal Pain Score (Numeric/FACES): 4 - Related Data Allergies Allergy/AdvReac Type Severity Reaction Status Date / Time aspirin Allergy Stomach Verified 02/27/21 20:33 Upset codeine Allergy Itching Verified 02/27/21 20:33 pregabalin [From Lyrica] Allergy Anaphylactic Verified 02/27/21 20:33 Shock Home Meds: Home Meds Gabapentin [Neurontin] 300 mg PO ASDIRECTED 12/14/17 [History] Hydrocodone/Acetaminophen [Hydrocodon-Acetaminophn 10-325] 1 tab PO Q12HR 11/08/19 [History] Past Medical History HEENT History: Reports: Other (See Below) Other HEENT History: Head injury that knocked out teeth Cardiovascular History: Reports: None Respiratory History: Reports: Pneumonia, Recurrent Gastrointestinal History: Reports: Other (See Below) Other Gastrointestinal History: lymph nodes on Pancreas. Patient is having scans every few months to watch for growth of lymph nodes Genitourinary History: Reports: BPH, Prostate Disorder, Other (See Below) Other Genitourinary History: prostate ca Musculoskeletal History: Reports: Back Pain, Chronic, Neck Pain, Chronic, Osteoarthritis Neurological History: Reports: None, Concussion Psychiatric History: Reports: Addiction Other Psychiatric History: decreased memory since head injury years ago. Endocrine/Metabolic History: Reports: None Hematologic History: Reports: None Immunologic History: Reports: None Oncologic (Cancer) History: Reports: Prostate Dermatologic History: Reports: Other (See Below) - Infectious Disease History Infectious Disease History: Reports: Hepatitis C - Past Surgical History Head Surgeries/Procedures: Reports: None Cardiovascular Surgical History: Reports: None Male Surgical History: Reports: Prostatectomy Musculoskeletal Surgical History: Reports: Other (See Below) Other Musculoskeletal Surgeries/Procedures:: head and neck trauma Social & Family History - Family History Family Medical History: No Pertinent Family History - Tobacco Use Tobacco Use Status *Q: Current Some Day Tobacco User Years of Tobacco use: 40 Packs/Tins Daily: 1 - Caffeine Use Caffeine Use: Reports: Coffee - Recreational Drug Use Recreational Drug Use: No - Living Situation & Occupation Living situation: Reports: with Family Occupation: Disabled ED ROS GENERAL - Review of Systems Review Of Systems: Comprehensive ROS is negative, except as noted in HPI. ED EXAM, GI/ABD - Physical Exam Exam: See Below Exam Limited By: No Limitations General Appearance: Alert, Mild Distress Ears: Normal External Exam Nose: Normal Inspection Throat/Mouth: Normal Inspection Head: Atraumatic, Normocephalic Neck: Normal Inspection Respiratory/Chest: No Respiratory Distress, Lungs Clear, Normal Breath Sounds Cardiovascular: Regular Rate, Rhythm GI/Abdominal Exam: Normal Bowel Sounds, Soft, Tender (mild RLW with ddep palpation) Back Exam: Normal Inspection Extremities: Normal Inspection Neurological: Alert, Oriented, Normal Cognition Psychiatric: Normal Affect Skin Exam: Warm, Dry, Intact, Normal Color Course - Vital Signs Last Recorded V/S: Last Vital Signs Temp 97.2 F 02/27/21 22:32 Pulse 74 02/27/21 22:32 Resp 14 02/27/21 22:32 BP 135/74 02/27/21 22:32 Pulse Ox 98 02/27/21 22:32 - Orders/Labs/Meds Labs: Laboratory Tests 02/27/21 02/27/21 02/27/21 Range/Units 20:50 20:50 20:50 WBC 8.5 (5.0-10.0) 10^3/uL RBC 5.33 (4.6-6.2) 10^6/uL Hgb 16.2 (14.0-18.0) g/dL Hct 47.2 (40.0-54.0) % MCV 88.6 (80-100) fL MCH 30.4 (27.0-34.0) pg MCHC 34.3 (33.0-35.0) g/dL Plt Count 248 (150-450) 10^3/uL Neut % (Auto) 62.8 (42.2-75.2) % Lymph % (Auto) 22.1 (20.5-50.1) % [place] % (Auto) 12.4 H (2-8) % Eos % (Auto) 2.2 (1.0-3.0) % Baso % (Auto) 0.5 (0.0-1.0) % Sodium 142 (136-145) mmol/L Potassium 3.8 (3.5-5.1) mmol/L Chloride 103 (98-107) mmol/L Carbon Dioxide 26 (21-32) mmol/L Anion Gap 16.8 H (7-13) mEq/L BUN 17 (7-18) mg/dL Creatinine 1.06 (0.70-1.30) mg/dL Est Cr Clr Drug Dosing 66.42 mL/min Estimated GFR (MDRD) > 60 BUN/Creatinine Ratio 16.0 (No establ ref range) Glucose 107 H (70-99) mg/dL Lactic Acid 1.1 (0.4-2.0) mmol/L Calcium 9.1 (8.5-10.1) mg/dL Total Bilirubin 0.4 (0.2-1.0) mg/dL AST 15 (15-37) U/L ALT 21 (16-63) U/L Alkaline Phosphatase 66 (46-116) U/L Total Protein 7.7 (6.4-8.2) g/dL Albumin 4.1 (3.4-5.0) g/dL Globulin 3.6 Albumin/Globulin Ratio 1.1 Amylase 29 (25-115) U/L Lipase 81 (73-393) U/L Urine Color (YELLOW) Urine Appearance (CLEAR) Urine pH (5.0-9.0) Ur Specific [place] (1.005-1.030) Urine Protein (NEGATIVE) Urine Glucose (UA) (NEGATIVE) Urine Ketones (NEGATIVE) Urine Occult Blood (NEGATIVE) Urine Nitrite (NEGATIVE) Urine Bilirubin (NEGATIVE) Urine Urobilinogen (0.2-1.0) mg/dL Ur Leukocyte Esterase (NEGATIVE) Urine Opiates Screen (NEGATIVE) Ur Oxycodone Screen (NEGATIVE) Urine Methadone Screen (NEGATIVE) Ur Barbiturates Screen (NEGATIVE) U Tricyclic Antidepress (NEGATIVE) Ur Phencyclidine Scrn (NEGATIVE) Ur Amphetamine Screen (NEGATIVE) U Methamphetamines Scrn (NEGATIVE) Urine MDMA Screen (NEGATIVE) U Benzodiazepines Scrn (NEGATIVE) Urine Cocaine Screen (NEGATIVE) U Marijuana (THC) Screen (NEGATIVE) 02/27/21 02/27/21 Range/Units 23:15 23:15 WBC (5.0-10.0) 10^3/uL RBC (4.6-6.2) 10^6/uL Hgb (14.0-18.0) g/dL Hct (40.0-54.0) % MCV (80-100) fL MCH (27.0-34.0) pg MCHC (33.0-35.0) g/dL Plt Count (150-450) 10^3/uL Neut % (Auto) (42.2-75.2) % Lymph % (Auto) (20.5-50.1) % [place] % (Auto) (2-8) % Eos % (Auto) (1.0-3.0) % Baso % (Auto) (0.0-1.0) % Sodium (136-145) mmol/L Potassium (3.5-5.1) mmol/L Chloride (98-107) mmol/L Carbon Dioxide (21-32) mmol/L Anion Gap (7-13) mEq/L BUN (7-18) mg/dL Creatinine (0.70-1.30) mg/dL Est Cr Clr Drug Dosing mL/min Estimated GFR (MDRD) BUN/Creatinine Ratio (No establ ref range) Glucose (70-99) mg/dL Lactic Acid (0.4-2.0) mmol/L Calcium (8.5-10.1) mg/dL Total Bilirubin (0.2-1.0) mg/dL AST (15-37) U/L ALT (16-63) U/L Alkaline Phosphatase (46-116) U/L Total Protein (6.4-8.2) g/dL Albumin (3.4-5.0) g/dL Globulin Albumin/Globulin Ratio Amylase (25-115) U/L Lipase (73-393) U/L Urine Color Yellow (YELLOW) Urine Appearance Clear (CLEAR) Urine pH 7.0 (5.0-9.0) Ur Specific [place] 1.020 (1.005-1.030) Urine Protein Negative (NEGATIVE) Urine Glucose (UA) Negative (NEGATIVE) Urine Ketones Negative (NEGATIVE) Urine Occult Blood Negative (NEGATIVE) Urine Nitrite Negative (NEGATIVE) Urine Bilirubin Negative (NEGATIVE) Urine Urobilinogen 0.2 (0.2-1.0) mg/dL Ur Leukocyte Esterase Negative (NEGATIVE) Urine Opiates Screen Positive H (NEGATIVE) Ur Oxycodone Screen Positive H (NEGATIVE) Urine Methadone Screen Negative (NEGATIVE) Ur Barbiturates Screen Negative (NEGATIVE) U Tricyclic Antidepress Negative (NEGATIVE) Ur Phencyclidine Scrn Negative (NEGATIVE) Ur Amphetamine Screen Positive H (NEGATIVE) U Methamphetamines Scrn Positive H (NEGATIVE) Urine MDMA Screen Negative (NEGATIVE) U Benzodiazepines Scrn Negative (NEGATIVE) Urine Cocaine Screen Negative (NEGATIVE) U Marijuana (THC) Screen Negative (NEGATIVE) Meds: Medications Discontinued Medications Generic Name Dose Route Start Last Admin Trade Name Tiffanie PRN Reason Stop Dose Admin Sodium Chloride 1,000 mls @ 999 mls/hr 02/27/21 20:58 02/27/21 21:11 Normal Saline IV 02/27/21 21:58 999 mls/hr .BOLUS ONE Administration Iopamidol 100 ml 02/27/21 21:27 02/27/21 21:39 Iopamidol 612 Mg/Ml 100 Ml Bottle IVPUSH 02/27/21 21:28 100 ml ONETIME ONE Administration Ondansetron HCl 4 mg 02/27/21 20:58 02/27/21 21:11 Ondansetron 4 Mg/2 Ml Sdv IVPUSH 02/27/21 20:59 4 mg ONETIME ONE Administration Departure - Departure Time of Disposition: 23:24 Disposition: Home, Self-Care 01 Condition: Good Clinical Impression: Kidney stone, Constipation by delayed colonic transit, Positive urine drug screen Abdominal pain Qualifiers: Abdominal location: right lower quadrant Qualified Code(s): R10.31 - Right lower quadrant pain - Discharge Information *PRESCRIPTION DRUG MONITORING PROGRAM REVIEWED*: No *COPY OF PRESCRIPTION DRUG MONITORING REPORT IN PATIENT COREY: No Instructions: Abdominal Pain, Adult, [id number] Forms: ED Department Discharge Additional Instructions: increase fluids ibuprofen 600mg every 6 hours as needed, take with food hydrocodone per primary care light diet advance slowly follow up if symptoms worsen repeated vomiting, fever Sepsis Event Note (ED) - Evaluation Sepsis Screening Result: No Definite Risk
[2021-02-27 22:32] VITALS: BP 135/74; PULSE 74
--- NOTE | 2021-02-27 23:10 | CT ---
PROCEDURE INFORMATION: Exam: CT Abdomen And Pelvis With Contrast Exam date and time: 02/27/2021 9:46 PM Age: 65 years old Clinical indication: Other: Rlq pain TECHNIQUE: Imaging protocol: Computed tomography of the abdomen and pelvis with contrast. Radiation optimization: All CT scans at this facility use at least one of these dose optimization techniques: automated exposure control; mA and/or kV adjustm punctate calculi in both kidneys. No hydronephrosis ent per patient size (includes targeted exams where dose is matched to clinical indication); or iterative reconstruction. Contrast material: [id number]; Contrast volume: 75 ml; Contrast route: INTRAVENOUS (IV); COMPARISON: CT Chest Abdomen Pelvis w Cont 12/05/2017 11:01 AM FINDINGS: Liver: Normal. No mass. Gallbladder and bile ducts: Normal. No calcified stones. No ductal dilation. Pancreas: Normal. No ductal dilation. Spleen: Normal. No splenomegaly. Adrenal glands: Normal. No mass. Kidneys and ureters: Punctate calculi in both kidneys. No hydronephrosis Stomach and bowel: Unremarkable. No obstruction. No mucosal thickening. Appendix: No evidence of appendicitis. Intraperitoneal space: Unremarkable. No free air. No significant fluid collection. Vasculature: Unremarkable. No abdominal aortic aneurysm. Lymph nodes: Unremarkable. No enlarged lymph nodes. Urinary bladder: Unremarkable as visualized. Reproductive: Unremarkable as visualized. Bones/joints: Unremarkable. No acute fracture. Soft tissues: Unremarkable. IMPRESSION: Bilateral nonobstructive nephrolithiasis.
== END 2021-02-27 23:38 | disposition home or self-care (01) ==
LOC: DL.ED 20:16
DX: N20.0 Calculus of kidney (principal); K59.01 Slow transit constipation; R82.5 Elevated urine levels of drugs, medicaments and biological substances; Z72.0 Tobacco use; Z88.5 Allergy status to narcotic agent; Z88.8 Allergy status to other drugs, medicaments and biological substances
CPT/HCPCS: 36415; 74177; 80053; 80305; 81003; 82150; 83605; 83690; 85025; 87040; 96374; 99284; J2405; J7030; Q9967

== ENCOUNTER 2022-12-21 18:04 | Emergency (ER) | payer MEDICARE, MEDICAID ==
[2022-12-21 18:30] VITALS: BP 135/76; PULSE 79
[2022-12-21 19:13] LABS: ANION GAP 13.7 mEq/L (7-13); CHLORIDE,CL 104 mmol/L (98-107); SODIUM,NA 139 mmol/L (136-145)
[2022-12-21 19:16] LABS: ESTIMATED GFR 99 mL/min (>=60)
[2022-12-21] MEDS ORDERED: methylPREDNISolone Sodium Succinate 125 MG/2 ML SDV IM ONE (20:01)
== END 2022-12-21 20:08 | disposition left against medical advice (07) ==
LOC: DL.ED 18:04
DX: H92.01 Otalgia, right ear (principal); R51.9 Headache, unspecified; Z88.5 Allergy status to narcotic agent; Z88.8 Allergy status to other drugs, medicaments and biological substances; Z72.0 Tobacco use
CPT/HCPCS: 36415; 70450; 80053; 80307; 83605; 84145; 85025; 85610; 85651; 85730; 86140; 96372; 99284

== ENCOUNTER 2023-01-31 00:07 | Emergency (ER) | payer MEDICAID, MEDICARE ==
[2023-01-31 01:21] VITALS: BP 126/99; PULSE 88
== END 2023-01-31 01:12 | disposition home or self-care (01) ==
LOC: DL.ED 00:07
DX: S61.001A Unspecified open wound of right thumb without damage to nail, initial encounter (principal); S61.200A Unspecified open wound of right index finger without damage to nail, initial encounter; S61.203A Unspecified open wound of left middle finger without damage to nail, initial encounter; S61.205A Unspecified open wound of left ring finger without damage to nail, initial encounter; S61.207A Unspecified open wound of left little finger without damage to nail, initial encounter; F17.210 Nicotine dependence, cigarettes, uncomplicated; Z88.6 Allergy status to analgesic agent; Z88.5 Allergy status to narcotic agent; Z88.8 Allergy status to other drugs, medicaments and biological substances; W25.XXXA Contact with sharp glass, initial encounter
CPT/HCPCS: 99282; 99283

== ENCOUNTER 2023-12-13 06:37 | Emergency (ER) | payer MEDICARE ==
[2023-12-13 07:02] LABS: APPEARANCE,URINE CLEAR (CLEAR); BILIRUBIN,URINE NEGATIVE (NEGATIVE); COLOR,URINE YELLOW (YELLOW); GLUCOSE,URINE NEGATIVE (NEGATIVE); KETONES,URINE NEGATIVE (NEGATIVE); LEUKOCYTE ESTERASE,URINE NEGATIVE (NEGATIVE); NITRITE,URINE NEGATIVE (NEGATIVE); OCCULT BLOOD,URINE TRACE-INTACT (NEGATIVE); PH,URINE 6.5 (5.0-9.0); PROTEIN,URINE NEGATIVE (NEGATIVE); UROBILINOGEN,URINE 0.2 mg/dL (0.2-1.0)
[2023-12-13] MEDS: Sodium Chloride 0.9% 10 ML Syringe FLUSH PRN (07:11)
[2023-12-13] MEDS: Ketorolac 30 MG/ML SDV IVPUSH ONE (07:13)
[2023-12-13] MEDS: Iopamidol 612 MG/ML 100 ML Bottle IVPUSH ONE (07:23)
[2023-12-13 07:24] LABS: MUCUS,URINE RARE /LPF (NOT SEEN); RBC,URINE 0-5 /HPF (0-5); WBC,URINE 0-5 /HPF (0-5/HPF)
[2023-12-13 07:25] LABS: BACTERIA,URINE RARE /HPF (0-FEW/HPF); EPITHELIAL CELLS,URINE NOT SEEN /HPF (NOT SEEN)
[2023-12-13 07:25] LABS: BASOPHILS PERCENT AUTO 0.3 % (0.0-1.0); EOSINOPHILS PERCENT AUTO 3.1 % (1.0-3.0); HEMATOCRIT 46.8 % (40.0-54.0); HEMOGLOBIN 16.2 g/dL (14.0-18.0); LYMPHOCYTES PERCENT AUTO 17.9 % (20.5-50.1); MEAN CORPUSCULAR HEMOGLOBIN 31.7 pg (27.0-34.0); MEAN CORPUSCULAR HGB CONC 34.6 g/dL (33.0-35.0); MEAN CORPUSCULAR VOLUME 91.6 fL (80-100); MONOCYTES PERCENT AUTO 10.8 % (2-8); NEUTROPHILS PERCENT AUTO 67.9 % (42.2-75.2); PLATELET COUNT,PLT 262 10^3/uL (150-450); RED BLOOD CELL COUNT 5.11 10^6/uL (4.6-6.2); WHITE BLOOD CELL COUNT,WBC 9.7 10^3/uL (5.0-10.0)
[2023-12-13 07:35] LABS: ANION GAP 13.7 mEq/L (7-13); BILIRUBIN TOTAL 0.2 mg/dL (0.2-1.0); BUN/CREATININE RATIO 18.3 (No establ ref range); CALCIUM 8.5 mg/dL (8.5-10.1); CREATININE 0.93 mg/dL (0.70-1.30); EST CRCL DRUG DOSING (CG) 83.44 mL/min; POTASSIUM,K 3.7 mmol/L (3.5-5.1); PROTEIN TOTAL,TP 8.2 g/dL (6.4-8.2)
[2023-12-13 07:54] LABS: AMPHETAMINES,URINE NEGATIVE (NEGATIVE); BARBITURATES,URINE NEGATIVE (NEGATIVE); BENZODIAZEPINE,URINE NEGATIVE (NEGATIVE); MDMA (ECSTASY), URINE NEGATIVE (NEGATIVE); METHADONE,URINE NEGATIVE (NEGATIVE); METHAMPHETAMINES,URINE NEGATIVE (NEGATIVE); OPIATES,URINE NEGATIVE (NEGATIVE); OXYCODONE,URINE NEGATIVE (NEGATIVE); PHENCYCLIDINE,URINE NEGATIVE (NEGATIVE); TCA,URINE NEGATIVE (NEGATIVE)
[2023-12-13 08:47] VITALS: BP 150/89; PULSE 59
== END 2023-12-13 09:10 | disposition home or self-care (01) ==
LOC: DL.ED 06:37
DX: N20.0 Calculus of kidney (principal); Z88.6 Allergy status to analgesic agent; Z88.5 Allergy status to narcotic agent; Z88.8 Allergy status to other drugs, medicaments and biological substances; Z79.899 Other long term (current) drug therapy
CPT/HCPCS: 36415; 74178; 80053; 80305; 81001; 83605; 85025; 96374; 99284; J1885; Q9967; J3490

== ENCOUNTER 2023-12-15 20:40 | Emergency (ER) | payer MEDICARE ==
[2023-12-15 20:45] VITALS: BP 153/82; PULSE 70
[2023-12-15] MEDS: Acetaminophen 500 MG Tab PO ONE (21:40)
[2023-12-15] MEDS: HYDROmorphone 1 MG/ML Syringe IVPUSH ONE (21:40)
== END 2023-12-15 22:36 | disposition home or self-care (01) ==
LOC: DL.ED 20:40
DX: M54.41 Lumbago with sciatica, right side (principal); F17.210 Nicotine dependence, cigarettes, uncomplicated; Z88.6 Allergy status to analgesic agent; Z88.5 Allergy status to narcotic agent; Z88.8 Allergy status to other drugs, medicaments and biological substances; Z79.899 Other long term (current) drug therapy
CPT/HCPCS: 96374; 99284; A9270; J1170; 99283

== ENCOUNTER 2024-06-07 06:44 | Day surgery (SDC) | payer MEDICARE ==
[2024-06-07] MEDS ORDERED: Midazolam 1 MG/ML 2 ML SDV IV ONE (06:45)
[2024-06-07] MEDS ORDERED: fentaNYL 100 MCG/2 ML SDV IV ONE (06:45)
[2024-06-07] MEDS ORDERED: Midazolam 1 MG/ML 2 ML SDV ONE (06:54)
[2024-06-07] MEDS ORDERED: fentaNYL 100 MCG/2 ML SDV ONE (06:55)
[2024-06-07] MEDS: Dextrose 5%-0.45% NaCl 1,000 ML IV SCH (07:31)
[2024-06-07] MEDS: fentaNYL 100 MCG/2 ML SDV IV ONE ×2 (08:38)
[2024-06-07] MEDS: Midazolam 1 MG/ML 2 ML SDV IV ONE ×2 (08:39)
[2024-06-07 10:13] VITALS: BP 116/73; PULSE 59
== END 2024-06-07 10:09 | disposition home or self-care (01) ==
LOC: DL.ENDO 06:44
PROVIDERS: ATTEND Internal Medicine Gastroenterology
DX: K31.89 Other diseases of stomach and duodenum (principal); F17.210 Nicotine dependence, cigarettes, uncomplicated; Z79.899 Other long term (current) drug therapy; Z88.5 Allergy status to narcotic agent; Z88.6 Allergy status to analgesic agent
CPT/HCPCS: 43239; 87077; J2250; J3010; J7799; 88305

== ENCOUNTER → 2024-12-06 | Day surgery (SDC) | payer MEDICARE, MEDICAID ==
[~2024-12-06] MED LIST: Dextrose 5%-0.45% NaCl 1,000 ML IV SCH
== END ==
LOC: DL.ENDO 07:23
PROVIDERS: ATTEND Internal Medicine Gastroenterology
DX: Z12.11 Encounter for screening for malignant neoplasm of colon (principal); Z53.8 Procedure and treatment not carried out for other reasons